=== PATIENT | male | born 1965 | race Hispanic/Latino ===

== ENCOUNTER 2017-07-17 05:21 | Inpatient (IN) | payer MEDICAID, OTHER ==
--- NOTE | 2017-07-17 06:04 | ED PDOC ---
Arrival/HPI <Cee Lafleur - Last Filed: 07/17/17 06:19> - General Historian: Patient EM Caveat: Acuity of Condition - History of Present Illness Time/Duration: Prior to Arrival, Other (2 days) Symptom Onset: Gradual Symptom Course: Intermittent Quality: Cramping Severity Level: 5 Activities at Onset: Light Context: Sitting, Standing <Morenita Jimenez - Last Filed: 07/17/17 07:13> - General Chief Complaint: Abdominal Pain Time Seen by Provider: 07/17/17 05:24 - History of Present Illness Narrative History of Present Illness (Text): 07/17/17 06:11 51 years old male with PMH HTN, HLD, presents with diffuse abdominal pain for past 2 days. Pt states that it started one evening after he ate steak, describes it crampy, intermittent, associated with nonbloody loose, watery diarrhea, diaphoresis, dyspepsia, and nausea. He also complains that he feels lightheaded today. Denies appetite changes, fever, chills, chest pain, sob, cough, hematochezia, vomiting, hx of constipation, urinary symptoms. PCP in [place]. Pt is visiting his father in [place]. Pt's father is currently a patient at [facility], to undergo cardiac procedure. (Morenita Jimenez) Associated Symptoms (Text): 07/17/17 06:17 Denies appetite changes, fever, chills, chest pain, sob, cough, hematochezia, vomiting, hx of constipation, urinary symptoms. (Morenita Jimenez) Past Medical History - Provider Review Nursing Documentation Reviewed: Yes - Cardiac Hx Hypertension: Yes - Psychiatric Hx Substance Use: No <Morenita Jimenez - Last Filed: 07/17/17 07:13> Family/Social History - Physician Review Nursing Documentation Reviewed: Yes Family/Social History: No Known Family HX Smoking Status: no Hx Alcohol Use: No Hx Substance Use: No <Morenita Jimenez - Last Filed: 07/17/17 07:13> Allergies/Home Meds <Cee Lafleur - Last Filed: 07/17/17 06:19> <Morenita Jimenez - Last Filed: 07/17/17 07:13> Allergies/Adverse Reactions: Allergies No Known Allergies Allergy (Verified 07/17/17 05:39) Home Medications: Home Meds Medication Instructions Recorded Confirmed No Known Home Med 07/17/17 07/17/17 Review of Systems - Review of Systems Constitutional: absent: Fatigue, Fevers Eyes: absent: Vision Changes ENT: absent: Hearing Changes, Sore Throat Respiratory: absent: SOB, Cough Cardiovascular: absent: Chest Pain Gastrointestinal: Abdominal Pain, Stool Changes, Diarrhea, Nausea. absent: Vomiting Genitourinary Male: absent: Dysuria, Hematuria Musculoskeletal: absent: Back Pain Skin: absent: Rash Neurological: absent: Headache Endocrine: absent: Diaphoresis Psychiatric: Anxiety <Morenita Jimenez - Last Filed: 07/17/17 07:13> Physical Exam Vital Signs Reviewed: Yes Temperature: Afebrile Blood Pressure: Normal Pulse: Tachycardic Respiratory Rate: Normal Appearance: Positive for: Non-Toxic, Uncomfortable Pain Distress: Mild Mental Status: Positive for: Alert and Oriented X 3 - Systems Exam Head: Present: Atraumatic, Normocephalic Pupils: Present: PERRL Extroacular Muscles: Present: EOMI Conjunctiva: Present: Normal Mouth: Present: Moist Mucous Membranes Pharnyx: No: ERYTHEMA Neck: Present: Normal Range of Motion Respiratory/Chest: Present: Clear to Auscultation. No: Respiratory Distress Cardiovascular: Present: Normal S1, S2, Tachycardic. No: Murmurs Abdomen: Present: Tenderness (diffuse), Normal Bowel Sounds, Guarding (LLQ) Upper Extremity: No: Cyanosis Lower Extremity: No: CALF TENDERNESS Neurological: Present: GCS=15, Speech Normal Skin: Present: Warm, Dry Psychiatric: Present: Alert, Oriented x 3 <Morenita Jimenez - Last Filed: 07/17/17 07:13> Vital Signs Temp Pulse Resp BP Pulse Ox 07/17/17 06:45 89 16 132/82 98 07/17/17 05:39 97.7 F 109 H 18 100/62 97 Medical Decision Making <Cee Lafleur - Last Filed: 07/17/17 06:19> - Transfer of Care Patient signed out to Dr:: Mayco Evans <Morenita Jimenez - Last Filed: 07/17/17 07:13> ED Course and Treatment: Patient Seen With Resident: In agreement with resident note which contains more details about the patient. Patient was seen and evaluated with resident. Came up with plan and treatment together. A 51 year old male with abdominal pain, watery diarrhea, nausea, dyspepsia and diaphoresis. Additional HPI as noted by resident. On physical exam, patient has diffuse abdominal tenderness with guarding. Ordered labs and will give patient IV fluids, Pepcid, Mylicon, Zofran. (Cee Lafleur) 07/17/17 05:58 51 years old male with hx of HTN and HLD, presents for diffuse abdominal pain: - CBC, CMP, lipase, Fluids - Zofran, Pepcid, Simethicone - Reassess 07/17/17 07:11 Pt still TTP with guarding in LLQ on exam. Will order CT abd pelvis. Discussed and handed over the patient to medical imaging technologist, Dr Mayco Evans. (Morenita Jimenez) - Lab Interpretations Lab Results: 07/17/17 06:31 Lab Results 07/17/17 06:31: WBC 7.3, RBC 5.76, Hgb 18.0, Hct 51.7, MCV 89.8, MCH 31.3, MCHC 34.8, RDW 13.7, Plt Count 150, MPV 10.9, Gran % 71.7 H, Lymph % (Auto) 16.6 L, [place] % (Auto) 11.5 H, Eos % (Auto) 0.1 L, Baso % (Auto) 0.1, Gran # 5.21, Lymph # 1.2, [place] # 0.8 H, Eos # 0.0, Baso # 0.01 - RAD Interpretation Radiology Orders: 07/17/17 07:01 ABDOMEN & PELVIS [ABD & PELVIS IV CONTRAST ONLY] [CT] Stat - Medication Orders Current Medication Orders: Discontinued Medications Famotidine (Pepcid) 20 mg IVP STAT STA Stop: 07/17/17 06:05 Last Admin: 07/17/17 06:39 Dose: 20 mg IVP Administration Document 07/17/17 06:39 AD (Rec: 07/17/17 06:39 AD [id number]) Charges for Administration # of IVP Administrations 1 Sodium Chloride (Sodium Chloride 0.9%) 1,000 mls @ 999 mls/hr IV .Q1H1M STA Stop: 07/17/17 07:08 Last Admin: 07/17/17 06:39 Dose: 999 mls/hr eMAR Start Stop Document 07/17/17 06:39 AD (Rec: 07/17/17 06:39 AD [id number]) Intravenous Solution Start Date 07/17/17 Start Time 06:39 Ondansetron HCl (Zofran Inj) 4 mg IVP STAT STA Stop: 07/17/17 06:06 Last Admin: 07/17/17 06:39 Dose: 4 mg IVP Administration Document 07/17/17 06:39 AD (Rec: 07/17/17 06:39 AD [id number]) Charges for Administration # of IVP Administrations 1 Simethicone (Mylicon Liq) 40 mg PO STAT STA Stop: 07/17/17 06:06 - Scribe Statement The provider has reviewed the documentation as recorded by the Scribe <Cee Lafleur - Last Filed: 07/17/17 06:19> - PA / RESEARCH PHYSIOLOGIST / Resident Statement MD/ has reviewed & agrees with the documentation as recorded. MD/ has examined the patient and agrees with the treatment plan. <Morenita Jimenez - Last Filed: 07/17/17 07:13> - Scribe Statement Gurinder Matos Provider Scribe Attestation: All medical record entries made by the Scribe were at my direction and personally dictated by me. I have reviewed the chart and agree that the record accurately reflects my personal performance of the history, physical exam, medical decision making, and the department course for this patient. I have also personally directed, reviewed, and agree with the discharge instructions and disposition. (Cee Lafleur) Disposition/Present on Arrival <Cee Lafleur - Last Filed: 07/17/17 06:19> - Present on Arrival Any Indicators Present on Arrival: No History of DVT/PE: No History of Uncontrolled Diabetes: No Urinary Catheter: No History of Decub. Ulcer: No History Surgical Site Infection Following: None - Disposition Have Diagnosis and Disposition been Completed?: No Disposition Time: 07:13 <Morenita Jimenez - Last Filed: 07/17/17 07:13> - Disposition Diagnosis: Abdominal pain Condition: FAIR Forms: [employer] (Czech)
[2017-07-17] MEDS ORDERED: Simethicone 40 mg/0.6 ml Liquid (30 ml) PO STA (06:05)
[2017-07-17] MEDS ORDERED: Sodium Chloride 0.9% 1,000 ML IV STA ×3 (06:08→09:15)
[2017-07-17 06:49] LABS: BASO # 0.01 K/mm3 (0.0-2.0); BASO % 0.1 % (0.0-3.0); EOS % 0.1 % (1.5-5.0); GRAN # 5.21 (1.4-6.5); GRAN % 71.7 % (50.0-68.0); HEMATOCRIT 51.7 % (42.0-52.0); LYMPH # 1.2 (1.2-3.4); LYMPH % 16.6 % (22.0-35.0); MEAN CELL VOLUME 89.8 fl (80.0-105.0); MEAN CORPUSCULAR HEMOGLOBIN 31.3 pg (25.0-35.0); MEAN CORPUSCULAR HGB CONC 34.8 g/dl (31.0-37.0); MEAN PLATELET VOLUME 10.9 fl (7.0-11.0); MONO # 0.8 (0.1-0.6); MONO % 11.5 % (1.0-6.0); RED CELL DISTRIBUTION WIDTH 13.7 % (11.5-14.5); WHITE BLOOD COUNT 7.3 10^3/ul (4.5-11.0)
[2017-07-17 07:07] LABS: ALB/GLOB RATIO 1.2 (1.1-1.8); ALKALINE PHOSPHATASE 50 U/L (38-126); ALT/SGPT 44 U/L (7-56); AST/SGOT 47 U/L (17-59); BILIRUBIN,TOTAL 1.4 mg/dL (0.2-1.3); BLOOD UREA NITROGEN 17 mg/dL (7-21); CALCIUM 8.3 mg/dL (8.4-10.5); CARBON DIOXIDE 27 mmol/L (21-33); CHLORIDE 101 mmol/L (98-107); GFR AFRICAN-AMERICAN > 60; GLUCOSE,RANDOM 139 mg/dL (70-110); LIPASE 28 U/L (23-300); POTASSIUM 3.8 mmol/L (3.6-5.0); SODIUM 135 mmol/L (132-148); TOTAL PROTEIN 6.4 g/dL (5.8-8.3)
--- NOTE | 2017-07-17 07:36 | ED PDOC ---
Physical Exam Temperature: Febrile Blood Pressure: Normal Pulse: Tachycardic Respiratory Rate: Normal Appearance: Positive for: Ill-Appearing Pain Distress: None Mental Status: Positive for: Alert and Oriented X 3 - Systems Exam Head: Present: Atraumatic, Other (face is flushed) Pupils: Present: PERRL Extroacular Muscles: Present: EOMI Conjunctiva: Present: Normal. No: Injected, Icteric Mouth: Present: Moist Mucous Membranes Neck: Present: Normal Range of Motion. No: Meningeal Signs Respiratory/Chest: Present: Clear to Auscultation, Good Air Exchange. No: Respiratory Distress Cardiovascular: Present: Regular Rate and Rhythm, Normal S1, S2. No: Murmurs Abdomen: Present: Tenderness (in lower abdomen diffusely with voluntary guardign ) Back: No: CVA Tenderness Upper Extremity: Present: Normal Inspection. No: Cyanosis, Edema Lower Extremity: Present: Normal Inspection. No: Edema Neurological: Present: GCS=15, CN II-XII Intact, Speech Normal Skin: Present: Warm Psychiatric: Present: Alert, Oriented x 3 <Mayco Ewing - Last Filed: 07/17/17 10:06> Vital Signs Temp Pulse Resp BP Pulse Ox 07/17/17 09:13 98 F 122 H 21 121/75 99 07/17/17 07:45 101.0 F H 07/17/17 07:20 101.0 F H 109 H 20 109/61 96 07/17/17 06:45 89 16 132/82 98 07/17/17 05:39 97.7 F 109 H 18 100/62 97 Medical Decision Making <Mayco Ewing - Last Filed: 07/17/17 10:06> <Grzegorz Eller - Last Filed: 07/17/17 17:48> ED Course and Treatment: patient signed out to me by Resident Dr. Gruber; pending lab results and CT scan patient became febrile to 101; given tylenol 975 pending VBG lactate CBC shows elevated HgB, CMP WNL Lipase WNL Patient has no history of abdominal surgery, however states is burping much more than usual which actually woke him up from sleep with abdominal pain/ diarrhea admits to body aches/bone aches, and changing 6-7 shirts while sleeping 2/2 to sweating; no international travel as per patient; no cough Rapid Flu pending 07/17/17 08:54 VBG Lactate WNL; pending CT Scan Neg for Flu 07/17/17 08:55 CT is showing diffuse mural thickening consistent with enteritis vs inflammatory bowel disease will send stool culture, c diff, leukocytes, stool for blood, will give metronidazole/Cipro for enteritis will call medical service food concession manager; pending call back 07/17/17 09:42 still pending call back from medical service 07/17/17 10:06 Dr. Beckett accepts patient to his service he will have the resident come to examine the patient (Mayco Ewing) 07/17/17 07:20 The patient is signed over to me by Dr. Lafleur. The patient is currently pending lab results. 07/17/17 08:07 Upon reassessment, the patient has a fever of 101.0. He was given Tylenol and fluids. I reviewed his labs and results indicate mild dehydration and a slight left shift in bilirubin. Reviewed the resident note as above we'll give antibiotics and also on the differential as ischemic colitis, however infection is more likely 07/17/17 17:47 (Grzegorz Eller) - Lab Interpretations Lab Results: 07/17/17 06:31 07/17/17 06:49 Lab Results 07/17/17 07:50: pO2 100 H, VBG pH 7.44 H, VBG pCO2 36.0 L, VBG HCO3 24.5, VBG Total CO2 25.6, VBG O2 Sat (Calc) 98.8 H, VBG Base Excess 0.6, VBG Potassium 3.6 , Glucose 147 H, Lactate 1.2, FiO2 21.0, Sodium 133.0, Chloride 104.0, Venous Blood Potassium 3.6 07/17/17 07:36: Influenza Typ A,B (EIA) Negative for flu a/b 07/17/17 06:49: Sodium 135, Potassium 3.8, Chloride 101, Carbon Dioxide 27, Anion Gap 11, BUN 17, Creatinine 1.1, Est GFR ( Amer) > 60, Est GFR (Non- Af Amer) > 60, Random Glucose 139 H, Calcium 8.3 L, Total Bilirubin 1.4 H, AST 47, ALT 44, Alkaline Phosphatase 50, Total Protein 6.4, Albumin 3.5, Globulin 2.9, Albumin/Globulin Ratio 1.2, Lipase 28 07/17/17 06:31: WBC 7.3, RBC 5.76, Hgb 18.0, Hct 51.7, MCV 89.8, MCH 31.3, MCHC 34.8, RDW 13.7, Plt Count 150, MPV 10.9, Gran % 71.7 H, Lymph % (Auto) 16.6 L, [place] % (Auto) 11.5 H, Eos % (Auto) 0.1 L, Baso % (Auto) 0.1, Gran # 5.21, Lymph # 1.2, [place] # 0.8 H, Eos # 0.0, Baso # 0.01 - RAD Interpretation Radiology Orders: 07/17/17 07:01 ABDOMEN & PELVIS [ABD & PELVIS IV CONTRAST ONLY] [CT] Stat - Medication Orders Current Medication Orders: Sodium Chloride (Sodium Chloride 0.9%) 1,000 mls @ 999 mls/hr IV .Q1H1M STA Stop: 07/17/17 10:15 Last Admin: 07/17/17 09:33 Dose: 999 mls/hr eMAR Start Stop Document 07/17/17 09:33 LA (Rec: 07/17/17 09:33 [id number][facility] Intravenous Solution Start Date 07/17/17 Start Time 09:33 Ciprofloxacin (Cipro 400mg/200ml Dsw) 400 mg in 200 mls @ 133.3 mls/hr IVPB STAT STA PRN Reason: Protocol Stop: 07/17/17 10:56 Metronidazole (Flagyl) 500 mg in 100 mls @ 100 mls/hr IVPB STAT STA PRN Reason: Protocol Stop: 07/17/17 10:25 Discontinued Medications Acetaminophen (Tylenol 325mg Tab) 975 mg PO STAT STA Stop: 07/17/17 07:44 Last Admin: 07/17/17 07:45 Dose: 975 mg MAR Pain/Vitals Document 07/17/17 07:45 LA (Rec: 07/17/17 09:06 [id number]) Pain Reassessment Is This A Pain ReAssessment? No Sleep Is patient sleeping during reassessment? No Presence of Pain Presence of Pain Yes Pain Scale Used Pain Scale Used Numeric Location Pain Location Body Site Abdomen Intensity 5 Scale Used Numeric Vitals Temperature (97.6 F-99.6 F) 101.0 F Temperature Source Oral Re-Assess: MAR Pain/Vitals Document 07/17/17 08:45 SRE (Rec: 07/17/17 09:07 SRE [id number]) Pain Reassessment Is This A Pain ReAssessment? Yes Sleep Is patient sleeping during reassessment? No Presence of Pain Presence of Pain No Famotidine (Pepcid) 20 mg IVP STAT STA Stop: 07/17/17 06:05 Last Admin: 07/17/17 06:39 Dose: 20 mg IVP Administration Document 07/17/17 06:39 AD (Rec: 07/17/17 06:39 AD [id number]) Charges for Administration # of IVP Administrations 1 Sodium Chloride (Sodium Chloride 0.9%) 1,000 mls @ 999 mls/hr IV .Q1H1M STA Stop: 07/17/17 07:08 Last Admin: 07/17/17 06:39 Dose: 999 mls/hr eMAR Start Stop Document 07/17/17 06:39 AD (Rec: 07/17/17 06:39 AD [id number]) Intravenous Solution Start Date 07/17/17 Start Time 06:39 Sodium Chloride (Sodium Chloride 0.9%) 1,000 mls @ 999 mls/hr IV .Q1H1M STA Stop: 07/17/17 08:59 Last Admin: 07/17/17 08:00 Dose: 999 mls/hr eMAR Start Stop Document 07/17/17 08:00 LA (Rec: 07/17/17 09:06 [facility] [id number]) Intravenous Solution Start Date 07/17/17 Start Time 09:06 Ondansetron HCl (Zofran Inj) 4 mg IVP STAT STA Stop: 07/17/17 06:06 Last Admin: 07/17/17 06:39 Dose: 4 mg IVP Administration Document 07/17/17 06:39 AD (Rec: 07/17/17 06:39 AD [id number]) Charges for Administration # of IVP Administrations 1 Ondansetron HCl (Zofran Inj) 4 mg IVP STAT STA Stop: 07/17/17 09:16 Last Admin: 07/17/17 09:33 Dose: 4 mg IVP Administration Document 07/17/17 09:33 LA (Rec: 07/17/17 09:33 [facility] [id number]) Charges for Administration # of IVP Administrations 1 Simethicone (Mylicon Liq) 40 mg PO STAT STA Stop: 07/17/17 06:06 Last Admin: 07/17/17 07:19 Dose: 40 mg <Mayco Ewing - Last Filed: 07/17/17 10:06> - Scribe Statement The provider has reviewed the documentation as recorded by the Scribe <Grzegorz Eller - Last Filed: 07/17/17 17:48> - Scribe Statement Afia Flowers Provider Scribe Attestation: All medical record entries made by the Scribe were at my direction and personally dictated by me. I have reviewed the chart and agree that the record accurately reflects my personal performance of the history, physical exam, medical decision making, and the department course for this patient. I have also personally directed, reviewed, and agree with the discharge instructions and disposition. (Grzegorz Eller) Disposition/Present on Arrival - Present on Arrival Any Indicators Present on Arrival: Yes History of DVT/PE: No History of Uncontrolled Diabetes: No Urinary Catheter: No History of Decub. Ulcer: No - Disposition Have Diagnosis and Disposition been Completed?: No Disposition Time: 10:07 Patient Plan: Admission <Mayco Ewing - Last Filed: 07/17/17 10:06> - Present on Arrival Any Indicators Present on Arrival: No History of DVT/PE: No History of Uncontrolled Diabetes: No Urinary Catheter: No History of Decub. Ulcer: No History Surgical Site Infection Following: None - Disposition Patient Plan: Admission <Grzegorz Eller - Last Filed: 07/17/17 17:48> - Disposition Diagnosis: Abdominal pain, Enteritis Disposition: HOSPITALIZED Patient Problems: Current Active Problems Problem Status Onset Abdominal pain Acute Enteritis Acute Condition: FAIR
[2017-07-17 08:07] LABS: VENOUS BLOOD GAS BASE EXCESS 0.6 mmol/L (0.0-2.0); VENOUS BLOOD PH 7.44 (7.32-7.43)
[2017-07-17] MEDS ORDERED: Iohexol 350 MG/100 ML VIAL ONE (08:28)
--- NOTE | 2017-07-17 09:18 | CT ---
PROCEDURE: CT Abdomen and Pelvis with contrast HISTORY: abdominal pain COMPARISON: None. TECHNIQUE: Contrast dose: 100 cc of Omni 350 Radiation dose: Total exam DLP = 534 mGy-cm. This CT exam was performed using one or more of the following dose reduction techniques: Automated exposure control, adjustment of the mA and/or kV according to patient size, and/or use of iterative reconstruction technique. FINDINGS: LOWER THORAX: Unremarkable. LIVER: Unremarkable. No gross lesion or ductal dilatation. GALLBLADDER AND BILE DUCTS: Unremarkable. PANCREAS: Unremarkable. No gross lesion or ductal dilatation. SPLEEN: Unremarkable. ADRENALS: Unremarkable. No mass. KIDNEYS AND URETERS: Unremarkable. No hydronephrosis. No solid mass. VASCULATURE: Unremarkable. No aortic aneurysm. BOWEL: There is severe mural thickening and mural enhancement throughout the small bowel consistent with severe enteritis or inflammatory bowel disease. There is no evidence of obstruction. The bowel loops are mildly dilated measuring 3 cm in diameter. The colon is filled with fluid but otherwise unremarkable. There is no evidence of pneumatosis or free air. There is a small amount of ascites surrounding the liver APPENDIX: Normal appendix. PERITONEUM: Unremarkable. No free fluid. No free air. LYMPH NODES: Unremarkable. No enlarged lymph nodes. BLADDER: Unremarkable. REPRODUCTIVE: Unremarkable. BONES: No acute fracture. OTHER FINDINGS: None. IMPRESSION: There is severe mural thickening and mural enhancement throughout the small bowel consistent with severe enteritis or inflammatory bowel disease.
[2017-07-17] MEDS ORDERED: metroNIDAZOLE IV 500 mg/100 ml 500 MG/100 ML BAG IVPB STA (09:26)
[2017-07-17] MEDS ORDERED: Ciprofloxacin 400mg/200ml D5W 400 MG/200 ML BAG IVPB STA (09:26)
--- NOTE | 2017-07-17 10:37 | CP.PCM.HP ---
History of Present Illness - History of Present Illness History of Present Illness: Patient is a 51 year old man with past medical history of hypertension who presents to [facility] ED on 07/17/17 with complaints of abdominal pain. Patient states abdominal pain started Sunday afternoon concurrently with diarrhea. Admits to consuming clams the day prior and steak the day of start of symptoms. Patient states that symptoms have worsened with time. States that pain was initially localized to the epigastrium but eventually radiated down to the lower quadrants, specifically right lower quadrant. Patient admits to non- bloody diarrhea six times per day described as "reid water", chills, fevers, diaphoresis, nausea, and lightheadedness. Denies vomiting, chest pain, dysuria, increased urgency, increased frequency, recent sick contacts, recent travel outside of country. States he has been inside the hospital every day for the past two weeks to visit his father. PMD: Dr. Dsah affilied with [facility] in [place], [place] Surgical History: Denies Family History: non-contributory Social History: Lives in [place] with male partner, denies tobacco use, denies alcohol consumption, denies illicit drug use Allergies: NKDA Medications: Amlodipine, Metoprolol, omeprazole Present on Admission - Present on Admission Any Indicators Present on Admission: Yes Review of Systems - Constitutional Constitutional: Chills, Excessive Sweating, Fever, Weakness - EENT Eyes: absent: Blurred Vision, Change in Vision Ears: absent: Decreased Hearing, Ear Discharge Nose/Mouth/Throat: absent: Nasal Congestion, Sinus Pressure - Cardiovascular Cardiovascular: absent: Chest Pain, Dyspnea, Leg Edema - Respiratory Respiratory: absent: Dyspnea, Wheezing - Gastrointestinal Gastrointestinal: Diarrhea, Nausea. absent: Vomiting - Genitourinary Genitourinary: absent: Dysuria, Urinary Frequency, Urinary Urgency - Musculoskeletal Musculoskeletal: absent: Arthralgias, Back Pain - Integumentary Integumentary: absent: Acne, Alopecia - Psychiatric Psychiatric: absent: Confusion, Visual Hallucinations Past Patient History - Past Social History Smoking Status: no - CARDIAC Hx Hypertension: Yes - PSYCHIATRIC Hx Substance Use: No Meds Allergies/Adverse Reactions: Allergies Allergy/AdvReac Type Severity Reaction Status Date / Time No Known Allergies Allergy Verified 07/17/17 05:39 Physical Exam - Constitutional Appears: Non-toxic, No Acute Distress - Head Exam Head Exam: ATRAUMATIC, NORMAL INSPECTION, NORMOCEPHALIC - Eye Exam Eye Exam: EOMI, Normal appearance - ENT Exam ENT Exam: Mucous Membranes Moist - Respiratory Exam Respiratory Exam: Clear to Auscultation Bilateral, NORMAL BREATHING PATTERN. absent: Rhonchi, Wheezes - Cardiovascular Exam Cardiovascular Exam: REGULAR RHYTHM, +S1, +S2 - GI/Abdominal Exam GI & Abdominal Exam: Normal Bowel Sounds, Soft - Rectal Exam Rectal Exam: NORMAL INSPECTION - Back Exam Back exam: NORMAL INSPECTION - Neurological Exam Neurological exam: Alert, CN II-XII Intact, Oriented x3 - Psychiatric Exam Psychiatric exam: Normal Affect, Normal Mood - Skin Skin Exam: Diaphoretic, Intact, Normal Color, Warm Results - Vital Signs Recent Vital Signs: Last Vital Signs Temp 98 F 07/17/17 09:13 Pulse 122 H 07/17/17 09:13 Resp 21 07/17/17 09:13 BP 121/75 07/17/17 09:13 Pulse Ox 99 07/17/17 09:13 - Labs Result Diagrams: 07/19/17 11:08 07/19/17 11:08 Labs: Laboratory Results - last 24 hr 07/17/17 10:15 Stool Occult Blood Positive H Assessment & Plan - Assessment and Plan (Free Text) Assessment: 51 year old male with past medical history of hypertension presenting with diarrhea and abdominal pain found to have severe enteritis on radioimaging. Plan: 1. Abdominal pain - CT abdomen/pelvis reveals severe enteritis - Flagyl started - Zofran - NS @150 - GI consulted; recs appreciated - Hepatitis panel; results pending - Stool leukocytes; results pending - Ova and parasites; results pending - Stool Culture; results pending - C diff toxin and antigen; results pending - Procalcitonin, CRP ordered; results pending - Stool occult blood 2. Hypertension - SBP <120, DBP <80 - Will hold home BP meds for now DVT/GI prophylaxis SCDs/Protonix
[2017-07-17] MEDS: Sodium Chloride 0.9% 1,000 ML IV SCH ×2 (12:48→20:29)
[2017-07-17] MEDS: metroNIDAZOLE IV 500 mg/100 ml 500 MG/100 ML BAG IVPB SCH ×2 (12:59→21:29)
--- NOTE | 2017-07-17 13:35 | CP.PCM.CON ---
<Alba Perez - Last Filed: 07/17/17 13:31> History of Present Illness - History of Present Illness History of Present Illness: S&E at bedside, chart reviewed. Request for GI consult is for abdominal pain/ diarrhea. HPI: This is a 51 year old male with a PMH of HTN, who came to the ER with complaint of abdominal pain, fever/chills and perfuse diarrhea that started a day after having consumed clams and steak that was eaten the day of start of complaints. The patient states that his partner also had steak and he has been ok. His symptoms started on Sunday night, reports diarrhea 15 times, all watery , no blood, he states that he has the urge to have BM and has been straining to have BM, when he strains it "shoots out like water". He had # BM today, brown sludge. He c/o abdominal bloating, abdominal discomfort. Denies recent travel or antibiotics use. He had recent colonoscopy 3 months ago for screening in [place], he is here visiting because his [place] is [place] [facility] [place] He was found to have colon polyps and denies EGD, he does c/o acid reflux, he has been taking for years OTC Omeprazole. He had a ct scan of A&P w/only IV contrast and that reported severe mural thickening and mural enhancement in small bowel with severe enteritis or inflammatory bowel disease. PMH: HTN, colon polyps,GERD PSH: denies Allergies: NKDA Social HX: denies tobacco,drinks 3-5 glasses wine/day, denies drugs MEDS: reviewed as per MAR Family HX: denies colon/stomach cancer, non contributory ROS: systems reviewed with positive findings, see HPI. Past Patient History - Past Social History Smoking Status: no - CARDIAC Hx Hypertension: Yes - PSYCHIATRIC Hx Substance Use: No Meds Allergies/Adverse Reactions: Allergies Allergy/AdvReac Type Severity Reaction Status Date / Time No Known Allergies Allergy Verified 07/17/17 05:39 - Medications Medications: Current Medications Sodium Chloride (Sodium Chloride 0.9%) 1,000 mls @ 150 mls/hr IV .Q6H40M [facility] Last Admin: 07/17/17 12:48 Dose: 150 mls/hr Metronidazole (Flagyl) 500 mg in 100 mls @ 100 mls/hr IVPB Q8 [facility] PRN Reason: Protocol Last Admin: 07/17/17 12:59 Dose: 100 mls/hr Ondansetron HCl (Zofran Inj) 4 mg IVP Q4 PRN PRN Reason: Nausea/Vomiting Pantoprazole Sodium (Protonix Inj) 40 mg IVP Q12 [facility] Last Admin: 07/17/17 12:45 Dose: 40 mg Physical Exam - Constitutional Appears: No Acute Distress - Head Exam Head Exam: NORMOCEPHALIC - Eye Exam Eye Exam: Normal appearance. absent: Scleral icterus - ENT Exam ENT Exam: Mucous Membranes Dry - Respiratory Exam Respiratory Exam: Clear to Auscultation Bilateral, NORMAL BREATHING PATTERN. absent: Respiratory Distress - Cardiovascular Exam Cardiovascular Exam: +S1, +S2 - GI/Abdominal Exam GI & Abdominal Exam: Hyperactive Bowel Sounds, Soft, Tenderness (diffuse periumblical). absent: Guarding, Rebound - Extremities Exam Extremities exam: Positive for: pedal pulses present. Negative for: calf tenderness, pedal edema - Neurological Exam Neurological exam: Alert, CN II-XII Intact, Oriented x3 - Skin Skin Exam: Dry, Warm Results - Vital Signs Recent Vital Signs: Last Vital Signs Temp 102.2 F H 07/17/17 10:58 Pulse 119 H 07/17/17 10:25 Resp 20 07/17/17 10:25 BP 117/79 07/17/17 10:25 Pulse Ox 95 07/17/17 10:25 - Labs Result Diagrams: 07/17/17 06:31 07/17/17 06:49 Labs: Laboratory Results - last 24 hr 07/17/17 10:15 Stool Occult Blood Positive H Assessment & Plan - Assessment and Plan (Free Text) Assessment: ASSESSMENT: Acute Diarrhea, differential Enteritis/Colitis Guiac Positive, Hbg stable, recent colon 3 months ago, maybe secondary straining /colitis Dehydration HTN GERD PLAN: NPO , continue IVF on IV antibiotics FU stool studies: c&s/cdiff/o&P monitor electrolytes and replace as needed on Protonix BID discuss w/ pateint who has been on OTC Omeprazol for years 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 Thank you for this consult and for allowing us to participate in your patient care, further recommendation based upon clinical course. Seen and discussed w/ Dr. Walton. <Ricardo Walton V - Last Filed: 07/17/17 19:22> Meds - Medications Medications: Current Medications Sodium Chloride (Sodium Chloride 0.9%) 1,000 mls @ 150 mls/hr IV .Q6H40M [facility] Last Admin: 07/17/17 12:48 Dose: 150 mls/hr Metronidazole (Flagyl) 500 mg in 100 mls @ 100 mls/hr IVPB Q8 [facility] PRN Reason: Protocol Last Admin: 07/17/17 12:59 Dose: 100 mls/hr Levofloxacin/Dextrose (Levaquin 500mg) 500 mg in 100 mls @ 100 mls/hr IVPB DAILY [facility] Ondansetron HCl (Zofran Inj) 4 mg IVP Q4 PRN PRN Reason: Nausea/Vomiting Pantoprazole Sodium (Protonix Inj) 40 mg IVP Q12 [facility] Last Admin: 07/17/17 12:45 Dose: 40 mg Results - Vital Signs Recent Vital Signs: Last Vital Signs Temp 99.7 F H 07/17/17 16:37 Pulse 107 H 07/17/17 16:37 Resp 18 07/17/17 16:37 BP 108/63 07/17/17 16:37 Pulse Ox 96 07/17/17 16:26 - Labs Result Diagrams: 07/17/17 15:51 07/17/17 15:51 Labs: Laboratory Results - last 24 hr 07/17/17 07/17/17 07/17/17 10:15 15:51 15:51 WBC 5.8 D RBC 4.77 Hgb 14.7 D Hct 43.3 MCV 90.8 MCH 30.8 MCHC 33.9 RDW 13.3 Plt Count 110 L MPV 9.7 Gran % 61.4 Lymph % (Auto) 21.0 L [place] % (Auto) 17.2 H Eos % (Auto) 0.2 L Baso % (Auto) 0.2 Gran # 3.55 Lymph # 1.2 [place] # 1.0 H Eos # 0.0 Baso # 0.01 Sodium 136 Potassium 4.2 Chloride 102 Carbon Dioxide 29 Anion Gap 8 L BUN 15 Creatinine 1.1 Est GFR ( Amer) > 60 Est GFR (Non-Af Amer) > 60 Random Glucose 119 H Calcium 7.5 L Phosphorus 3.1 Magnesium 1.5 L Total Bilirubin 1.3 AST 52 ALT 44 Alkaline Phosphatase 38 D Total Protein 5.7 L Albumin 3.0 Globulin 2.7 Albumin/Globulin Ratio 1.1 Stool Occult Blood Positive H Attending/Attestation - Attestation I have personally seen and examined this patient.: Yes I have fully participated in the care of the patient.: Yes I have reviewed all pertinent clinical information: Yes Notes (Text): This is an addendum to GI consult report dictated by Alba Perez APN.The patient was seen and examined earlier. Medical records, lab studies, imagings were reviewed. Last 24 hours events reviewed. Agreed with the above treatment plan as outlined in Alba Perez APN's notes the with the addition of the following patient still has some tenderness in the epigastric and umbilical area. The CT scan was reviewed. Significant thickening of the small bowel loo Cultures still pending No previous history of diarrhea abdominal pain suggestive of IBD Clinically more suggestive of infectious enteritis Patient is already on IV Flagyl. Received 1 dose of IV Cipro in the ER We'll continue with Levaquin 500mg daily in addition to Flagyl. We'll start the patient on clear liquid diet Thank you very much for allowing us to participate in the care of the patient 07/17/17 19:19
[2017-07-17 16:01] LABS: BASO # 0.01 K/mm3 (0.0-2.0); BASO % 0.2 % (0.0-3.0); EOS % 0.2 % (1.5-5.0); GRAN # 3.55 (1.4-6.5); GRAN % 61.4 % (50.0-68.0); HEMATOCRIT 43.3 % (42.0-52.0); LYMPH # 1.2 (1.2-3.4); MEAN CELL VOLUME 90.8 fl (80.0-105.0); MEAN CORPUSCULAR HEMOGLOBIN 30.8 pg (25.0-35.0); MEAN CORPUSCULAR HGB CONC 33.9 g/dl (31.0-37.0); MEAN PLATELET VOLUME 9.7 fl (7.0-11.0); MONO % 17.2 % (1.0-6.0); RED CELL DISTRIBUTION WIDTH 13.3 % (11.5-14.5); WHITE BLOOD COUNT 5.8 10^3/ul (4.5-11.0)
[2017-07-17 16:05] LABS: ALKALINE PHOSPHATASE 38 U/L (38-126); ALT/SGPT 44 U/L (7-56); AST/SGOT 52 U/L (17-59); BILIRUBIN,TOTAL 1.3 mg/dL (0.2-1.3); BLOOD UREA NITROGEN 15 mg/dL (7-21); CALCIUM 7.5 mg/dL (8.4-10.5); CARBON DIOXIDE 29 mmol/L (21-33); CHLORIDE 102 mmol/L (98-107); GFR AFRICAN-AMERICAN > 60; GLUCOSE,RANDOM 119 mg/dL (70-110); MAGNESIUM 1.5 mg/dL (1.7-2.2); PHOSPHOROUS 3.1 mg/dL (2.5-4.5); POTASSIUM 4.2 mmol/L (3.6-5.0); SODIUM 136 mmol/L (132-148); TOTAL PROTEIN 5.7 g/dL (5.8-8.3)
[2017-07-17 16:21] LABS: ALB/GLOB RATIO 1.1 (1.1-1.8)
[2017-07-17 16:52] VITALS: BMI 27.1
[2017-07-17 20:17] LABS: INR 1.13 (0.93-1.08); PARTIAL THROMBOPLASTIN TIME 31.3 Seconds (25.1-36.5)
[2017-07-18] MEDS: metroNIDAZOLE IV 500 mg/100 ml 500 MG/100 ML BAG IVPB SCH ×3 (06:05→21:37)
[2017-07-18] MEDS: Sodium Chloride 0.9% 1,000 ML IV SCH ×3 (06:07→14:12)
[2017-07-18] MEDS ORDERED: levoFLOXacin 500 mg in D5W 500 MG/100 ML BAG IVPB SCH (10:00)
[2017-07-18] MEDS: cefTRIAXone 2 GM IN NS 2 GM/100 ML BAG IVPB SCH (11:44)
--- NOTE | 2017-07-18 13:22 | CP.PCM.CON ---
History of Present Illness - History of Present Illness History of Present Illness: 51 year old male with PMH of HTN came in to [facility] [place] complaining of abdominal pain and cramping associated with fever and chills for the past 2-3 days. Initially he had no diarrhea, but then his stools became watery and brown. He denies nausea and vomiting, no headache or dizziness, no lightheadedness, no chest pain , no SOB, no cough or colds, no sore throat, no dysuria. He states he only ate a piece of steak a day prior to his symptoms. He denies animal contacts. He has not traveled outside of [place] in the past 3 months. He has been seeing his father in [facility] [place] since last week. CT scan of the abdomen and pelvis is showing enterocolitis. Infectious diseases consult is requested to further evaluate and manage. Review of Systems - Review of Systems All systems: reviewed and no additional remarkable complaints except (as per HPI ) Past Patient History - Past Social History Smoking Status: no - CARDIAC Hx Hypertension: Yes - NEUROLOGICAL Hx Dizziness: Yes - MUSCULOSKELETAL/RHEUMATOLOGICAL Hx Falls: No - GASTROINTESTINAL Hx Gastroesophageal Reflux: Yes - PSYCHIATRIC Hx Substance Use: No Meds Allergies/Adverse Reactions: Allergies Allergy/AdvReac Type Severity Reaction Status Date / Time No Known Allergies Allergy Verified 07/17/17 05:39 - Medications Medications: Current Medications Sodium Chloride (Sodium Chloride 0.9%) 1,000 mls @ 150 mls/hr IV .Q6H40M [facility] Last Admin: 07/18/17 09:16 Dose: Not Given Metronidazole (Flagyl) 500 mg in 100 mls @ 100 mls/hr IVPB Q8 [facility] PRN Reason: Protocol Last Admin: 07/18/17 06:05 Dose: 100 mls/hr Levofloxacin/Dextrose (Levaquin 500mg) 500 mg in 100 mls @ 100 mls/hr IVPB DAILY [facility] Last Admin: 07/18/17 09:16 Dose: 100 mls/hr Ondansetron HCl (Zofran Inj) 4 mg IVP Q4 PRN PRN Reason: Nausea/Vomiting Pantoprazole Sodium (Protonix Inj) 40 mg IVP Q12 [facility] Last Admin: 07/18/17 09:16 Dose: 40 mg Physical Exam - Constitutional Appears: Non-toxic - Head Exam Head Exam: NORMAL INSPECTION - ENT Exam ENT Exam: Mucous Membranes Moist - Neck Exam Neck exam: Negative for: Lymphadenopathy, Meningismus - Respiratory Exam Respiratory Exam: Decreased Breath Sounds - Cardiovascular Exam Cardiovascular Exam: +S1, +S2 - GI/Abdominal Exam GI & Abdominal Exam: Soft, Tenderness (mild, lower quadrants) Results - Vital Signs Recent Vital Signs: Last Vital Signs Temp 100 F H 07/18/17 08:35 Pulse 104 H 07/18/17 08:35 Resp 20 07/18/17 08:35 BP 108/65 07/18/17 08:35 Pulse Ox 95 07/18/17 08:35 - Labs Result Diagrams: 07/17/17 15:51 07/17/17 15:51 Labs: Laboratory Results - last 24 hr 07/17/17 07/17/17 07/17/17 10:15 11:30 15:51 WBC RBC Hgb Hct MCV MCH MCHC RDW Plt Count MPV Gran % Lymph % (Auto) [place] % (Auto) Eos % (Auto) Baso % (Auto) Gran # Lymph # [place] # Eos # Baso # PT INR APTT Sodium Potassium Chloride Carbon Dioxide Anion Gap BUN Creatinine Est GFR ( Amer) Est GFR (Non-Af Amer) Random Glucose Calcium Phosphorus Magnesium Total Bilirubin AST ALT Alkaline Phosphatase C-React Prot High Sens Total Protein Albumin Globulin Albumin/Globulin Ratio Procalcitonin 3.58 H Stool Occult Blood Positive H HIV 1&2 Ag/Ab, 4th Gen Nonreactive 07/17/17 07/17/17 07/17/17 15:51 15:51 15:51 WBC 5.8 D RBC 4.77 Hgb 14.7 D Hct 43.3 MCV 90.8 MCH 30.8 MCHC 33.9 RDW 13.3 Plt Count 110 L MPV 9.7 Gran % 61.4 Lymph % (Auto) 21.0 L [place] % (Auto) 17.2 H Eos % (Auto) 0.2 L Baso % (Auto) 0.2 Gran # 3.55 Lymph # 1.2 [place] # 1.0 H Eos # 0.0 Baso # 0.01 PT INR APTT Sodium 136 Potassium 4.2 Chloride 102 Carbon Dioxide 29 Anion Gap 8 L BUN 15 Creatinine 1.1 Est GFR ( Amer) > 60 Est GFR (Non-Af Amer) > 60 Random Glucose 119 H Calcium 7.5 L Phosphorus 3.1 Magnesium 1.5 L Total Bilirubin 1.3 AST 52 ALT 44 Alkaline Phosphatase 38 D C-React Prot High Sens > 15.00 H Total Protein 5.7 L Albumin 3.0 Globulin 2.7 Albumin/Globulin Ratio 1.1 Procalcitonin Stool Occult Blood HIV 1&2 Ag/Ab, 4th Gen 07/17/17 19:56 WBC RBC Hgb Hct MCV MCH MCHC RDW Plt Count MPV Gran % Lymph % (Auto) [place] % (Auto) Eos % (Auto) Baso % (Auto) Gran # Lymph # [place] # Eos # Baso # PT 12.3 INR 1.13 H APTT 31.3 Sodium Potassium Chloride Carbon Dioxide Anion Gap BUN Creatinine Est GFR ( Amer) Est GFR (Non-Af Amer) Random Glucose Calcium Phosphorus Magnesium Total Bilirubin AST ALT Alkaline Phosphatase C-React Prot High Sens Total Protein Albumin Globulin Albumin/Globulin Ratio Procalcitonin Stool Occult Blood HIV 1&2 Ag/Ab, 4th Gen Assessment & Plan - Assessment and Plan (Free Text) Plan: Assessment Sepsis due to acute enterocolitis HTN Plan Started patient on Rocephin, Flagyl and patient has been given a dose of Ciprofloxacin pending stool cx, blood cx; stool for C. diff is negative GI is also following the patient will monitor clinically
[2017-07-18 14:00] LABS: BASO # 0.01 K/mm3 (0.0-2.0); BASO % 0.2 % (0.0-3.0); EOS % 0.9 % (1.5-5.0); GRAN # 2.71 (1.4-6.5); GRAN % 63.8 % (50.0-68.0); HEMATOCRIT 40.7 % (42.0-52.0); LYMPH % 23.1 % (22.0-35.0); MEAN CELL VOLUME 90.2 fl (80.0-105.0); MEAN CORPUSCULAR HEMOGLOBIN 30.8 pg (25.0-35.0); MEAN CORPUSCULAR HGB CONC 34.2 g/dl (31.0-37.0); MEAN PLATELET VOLUME 9.9 fl (7.0-11.0); MONO # 0.5 (0.1-0.6); RED CELL DISTRIBUTION WIDTH 13.2 % (11.5-14.5); WHITE BLOOD COUNT 4.3 10^3/ul (4.5-11.0)
[2017-07-18 14:08] LABS: INR 1.13 (0.93-1.08); PARTIAL THROMBOPLASTIN TIME 27.6 Seconds (25.1-36.5)
[2017-07-18 14:46] LABS: ALB/GLOB RATIO 1.1 (1.1-1.8); ALKALINE PHOSPHATASE 40 U/L (38-126); ALT/SGPT 36 U/L (7-56); AST/SGOT 24 U/L (17-59); BILIRUBIN,TOTAL 0.6 mg/dL (0.2-1.3); BLOOD UREA NITROGEN 10 mg/dL (7-21); CALCIUM 7.6 mg/dL (8.4-10.5); GFR AFRICAN-AMERICAN > 60; GLUCOSE,RANDOM 134 mg/dL (70-110); SODIUM 136 mmol/L (132-148); TOTAL PROTEIN 5.5 g/dL (5.8-8.3)
[2017-07-18] MEDS ORDERED: Potassium Chloride 20 mEq ER Tab PO STA (14:47)
--- NOTE | 2017-07-18 14:47 | CP.PCM.PN ---
Subjective - Date & Time of Evaluation Date of Evaluation: 07/18/17 Time of Evaluation: 07:40 - Subjective Subjective: Patient was seen and examined at bedside in no acute Objective - Vital Signs/Intake and Output Vital Signs (last 24 hours): Temp Pulse Resp BP Pulse Ox 100 F H 104 H 20 108/65 95 07/18/17 08:35 07/18/17 08:35 07/18/17 08:35 07/18/17 08:35 07/18/17 08:35 Intake and Output: 07/18/17 07/18/17 06:59 18:59 Intake Total 4100 780 Output Total 10 Balance 4090 780 - Medications Medications: Current Medications Sodium Chloride (Sodium Chloride 0.9%) 1,000 mls @ 150 mls/hr IV .Q6H40M [facility] Last Admin: 07/18/17 14:12 Dose: 150 mls/hr Metronidazole (Flagyl) 500 mg in 100 mls @ 100 mls/hr IVPB Q8 [facility] PRN Reason: Protocol Last Admin: 07/18/17 14:10 Dose: 100 mls/hr Ceftriaxone Sodium (Rocephin 2 Gm Ivpb) 2 gm in 100 mls @ 100 mls/hr IVPB DAILY [facility] PRN Reason: Protocol Last Admin: 07/18/17 11:44 Dose: 100 mls/hr Ondansetron HCl (Zofran Inj) 4 mg IVP Q4 PRN PRN Reason: Nausea/Vomiting Pantoprazole Sodium (Protonix Inj) 40 mg IVP Q12 [facility] Last Admin: 07/18/17 09:16 Dose: 40 mg - Labs Labs: 07/18/17 13:45 07/17/17 15:51 PT 12.3 SECONDS (9.4-12.5) 07/18/17 13:45 INR 1.13 (0.93-1.08) H 07/18/17 13:45 APTT 27.6 Seconds (25.1-36.5) 07/18/17 13:45 - Constitutional Appears: Toxic - Head Exam Head Exam: ATRAUMATIC, NORMAL INSPECTION, NORMOCEPHALIC - Eye Exam Eye Exam: EOMI, Normal appearance - ENT Exam ENT Exam: Mucous Membranes Moist, Normal Exam - Respiratory Exam Respiratory Exam: Clear to Ausculation Bilateral, NORMAL BREATHING PATTERN - Cardiovascular Exam Cardiovascular Exam: REGULAR RHYTHM, +S1, +S2 - GI/Abdominal Exam GI & Abdominal Exam: Soft, Hyperactive Bowel Sounds. absent: Distended, Organomegaly - Neurological Exam Neurological Exam: Alert, Awake, Oriented x3 - Psychiatric Exam Psychiatric exam: Normal Affect, Normal Mood - Skin Skin Exam: Normal Color, Warm Assessment and Plan - Assessment and Plan (Free Text) Assessment: 51 year old male with past medical history of hypertension presenting with diarrhea and abdominal pain found to have severe enteritis on radioimaging. Plan: Plan: 1. Abdominal pain - CT abdomen//pelvis reveals severe enteritis - Flagyl started - Zofran - NS @150 - GI consulted; recommends no endoscopy at this time. Patient's last colonoscopy 2-3 months prior- 3 polyps found (1 out of 3 was concerning. Will have colonoscopy repeated in 5 years) - Hepatitis panel; negative - Stool leukocytes; negative - Ova and parasites; negative - Stool Culture; pending - C diff toxin and antigen; negative - Procalcitonin, CRP - Stool occult blood positive - HIV testing; non reactive 2. Hypokalemia due to diarrhea - monitor - replete when needed with Kdur or Kriders 3. Hypertension - SBP <120, DBP <80 - Will hold home BP meds for now DVT/GI prophylaxis SCDs/Protonix
[2017-07-18] MEDS ORDERED: Potassium Chloride 20 mEq ER Tab PO ONE (14:55)
--- NOTE | 2017-07-18 17:12 | CP.PCM.PN ---
<Alba Perez - Last Filed: 07/18/17 17:12> Subjective - Date & Time of Evaluation Date of Evaluation: 07/18/17 Time of Evaluation: 10:45 - Subjective Subjective: S&E at bedside, had a few episode of diarrhea last night and 2 so far before my arrival. Notice blood last night, none this am. tolerated clear liquids but still have have abdominal pain, same as yesterday, but no pain med needed. No N /V, sob or chest pain. Objective - Vital Signs/Intake and Output Vital Signs (last 24 hours): Temp Pulse Resp BP Pulse Ox 98 F 91 H 18 104/67 100 07/18/17 16:00 07/18/17 16:00 07/18/17 16:00 07/18/17 16:00 07/18/17 16:00 Intake and Output: 07/18/17 07/18/17 06:59 18:59 Intake Total 4100 780 Output Total 10 Balance 4090 780 - Medications Medications: Current Medications Sodium Chloride (Sodium Chloride 0.9%) 1,000 mls @ 150 mls/hr IV .Q6H40M [facility] Last Admin: 07/18/17 14:12 Dose: 150 mls/hr Metronidazole (Flagyl) 500 mg in 100 mls @ 100 mls/hr IVPB Q8 [facility] PRN Reason: Protocol Last Admin: 07/18/17 14:10 Dose: 100 mls/hr Ceftriaxone Sodium (Rocephin 2 Gm Ivpb) 2 gm in 100 mls @ 100 mls/hr IVPB DAILY [facility] PRN Reason: Protocol Last Admin: 07/18/17 11:44 Dose: 100 mls/hr Potassium Chloride (Potassium Chloride 20 Meq/100 Ml) 20 meq in 100 mls @ 50 mls/hr IVPB Q2H [facility] Last Admin: 07/18/17 15:37 Dose: 50 mls/hr Ondansetron HCl (Zofran Inj) 4 mg IVP Q4 PRN PRN Reason: Nausea/Vomiting Pantoprazole Sodium (Protonix Inj) 40 mg IVP Q12 [facility] Last Admin: 07/18/17 09:16 Dose: 40 mg - Labs Labs: 07/18/17 13:45 07/18/17 13:45 PT 12.3 SECONDS (9.4-12.5) 07/18/17 13:45 INR 1.13 (0.93-1.08) H 07/18/17 13:45 APTT 27.6 Seconds (25.1-36.5) 07/18/17 13:45 - Constitutional Appears: No Acute Distress - Eye Exam Eye Exam: Normal appearance. absent: Scleral icterus - ENT Exam ENT Exam: Mucous Membranes Moist - Respiratory Exam Respiratory Exam: Clear to Ausculation Bilateral, NORMAL BREATHING PATTERN. absent: Respiratory Distress - Cardiovascular Exam Cardiovascular Exam: +S1, +S2 - GI/Abdominal Exam GI & Abdominal Exam: Soft, Tenderness (diffuse mid abdominal), Normal Bowel Sounds. absent: Guarding, Organomegaly, Rebound - Extremities Exam Extremities Exam: absent: Pedal Edema - Neurological Exam Neurological Exam: Alert, Awake, Oriented x3 - Skin Skin Exam: Dry, Warm Assessment and Plan - Assessment and Plan (Free Text) Assessment: ASSESSMENT: Acute Diarrhea, differential Enteritis/Colitis, cdiff negative Guiac Positive, Hbg stable, recent colon 3 months ago, maybe secondary straining /colitis Dehydration HTN GERD PLAN: clear liquid, advance as tolerate and when abdominal pain improves continue IVF on IV antibiotics FU stool studies: c&s/o&P monitor electrolytes and replace as needed on Protonix BID Seen and discussed w/ Dr. Walton. <Ricardo Walton V - Last Filed: 07/18/17 21:40> Objective - Vital Signs/Intake and Output Vital Signs (last 24 hours): Temp Pulse Resp BP Pulse Ox 98 F 91 H 18 104/67 100 07/18/17 16:00 07/18/17 16:00 07/18/17 16:00 07/18/17 16:00 07/18/17 16:00 Intake and Output: 07/18/17 07/19/17 18:59 06:59 Intake Total 780 840 Output Total 4 Balance 780 836 - Medications Medications: Current Medications Sodium Chloride (Sodium Chloride 0.9%) 1,000 mls @ 150 mls/hr IV .Q6H40M [facility] Last Admin: 07/18/17 14:12 Dose: 150 mls/hr Metronidazole (Flagyl) 500 mg in 100 mls @ 100 mls/hr IVPB Q8 [facility] PRN Reason: Protocol Last Admin: 07/18/17 14:10 Dose: 100 mls/hr Ceftriaxone Sodium (Rocephin 2 Gm Ivpb) 2 gm in 100 mls @ 100 mls/hr IVPB DAILY [facility] PRN Reason: Protocol Last Admin: 07/18/17 11:44 Dose: 100 mls/hr Potassium Chloride (Potassium Chloride 20 Meq/100 Ml) 20 meq in 100 mls @ 50 mls/hr IVPB Q2H [facility] Last Admin: 07/18/17 15:37 Dose: 50 mls/hr Ondansetron HCl (Zofran Inj) 4 mg IVP Q4 PRN PRN Reason: Nausea/Vomiting Pantoprazole Sodium (Protonix Inj) 40 mg IVP Q12 [facility] Last Admin: 07/18/17 09:16 Dose: 40 mg - Labs Labs: 07/18/17 13:45 07/18/17 19:55 PT 12.3 SECONDS (9.4-12.5) 07/18/17 13:45 INR 1.13 (0.93-1.08) H 07/18/17 13:45 APTT 27.6 Seconds (25.1-36.5) 07/18/17 13:45 Attending/Attestation - Attestation I have personally seen and examined this patient.: Yes I have fully participated in the care of the patient.: Yes I have reviewed all pertinent clinical information, including history, physical exam and plan: Yes Notes (Text): This is an addendum to GI progress report dictated by Alba Perez APN.The patient was seen and examined earlier. Medical records, lab studies, imagings were reviewed. Last 24 hours events reviewed. Agreed with the above treatment plan as outlined in Alba Perez APN's notes the with the addition of the following Feeling overall better diarrhea has slowed down. On liquid diet Follow up stool studies We will slowly advance the diet in a.m. 07/18/17 21:39
[2017-07-18 17:28] LABS: POTASSIUM 2.9 mmol/L (3.6-5.0)
[2017-07-18 17:29] LABS: CARBON DIOXIDE 22 mmol/L (21-33); CHLORIDE 105 mmol/L (98-107)
[2017-07-18 20:13] LABS: BLOOD UREA NITROGEN 8 mg/dL (7-21); CALCIUM 7.8 mg/dL (8.4-10.5); CARBON DIOXIDE 27 mmol/L (21-33); CHLORIDE 102 mmol/L (98-107); GFR AFRICAN-AMERICAN > 60; GLUCOSE,RANDOM 104 mg/dL (70-110); POTASSIUM 3.3 mmol/L (3.6-5.0); SODIUM 136 mmol/L (132-148)
[2017-07-19] MEDS: metroNIDAZOLE IV 500 mg/100 ml 500 MG/100 ML BAG IVPB SCH ×3 (05:22→21:19)
[2017-07-19] MEDS: Sodium Chloride 0.9% 1,000 ML IV SCH ×4 (05:42→17:25)
--- NOTE | 2017-07-19 09:07 | CP.PCM.PN ---
<Alba Perez - Last Filed: 07/19/17 09:05> Subjective - Date & Time of Evaluation Date of Evaluation: 07/19/17 Time of Evaluation: 09:02 - Subjective Subjective: S&E at bedside, chart reviewed, patient report that had 3 BM last night, loose, no bleeding, had 1 this am, he endorsees he does not have "urge" to go but feels bloated and goes to have BM. No N/V. Abdominal pain is better, not constant, now intermittent in certain areas, not throughout mid abdomen. No acute overnight events. Objective - Vital Signs/Intake and Output Vital Signs (last 24 hours): Temp Pulse Resp BP Pulse Ox 98.6 F 88 20 114/73 99 07/19/17 07:30 07/19/17 07:30 07/19/17 07:30 07/19/17 07:30 07/19/17 07:30 Intake and Output: 07/19/17 07/19/17 06:59 18:59 Intake Total 840 1600 Output Total 4 Balance 836 1600 - Medications Medications: Current Medications Sodium Chloride (Sodium Chloride 0.9%) 1,000 mls @ 150 mls/hr IV .Q6H40M [facility], [facility] Last Admin: 07/19/17 05:42 Dose: 150 mls/hr Metronidazole (Flagyl) 500 mg in 100 mls @ 100 mls/hr IVPB Q8 [facility] PRN Reason: Protocol Last Admin: 07/19/17 05:22 Dose: 100 mls/hr Ceftriaxone Sodium (Rocephin 2 Gm Ivpb) 2 gm in 100 mls @ 100 mls/hr IVPB DAILY [facility] PRN Reason: Protocol Last Admin: 07/18/17 11:44 Dose: 100 mls/hr Potassium Chloride (Potassium Chloride 20 Meq/100 Ml) 20 meq in 100 mls @ 50 mls/hr IVPB Q2H [facility] Stop: 07/19/17 09:29 Last Admin: 07/19/17 07:41 Dose: 50 mls/hr Ondansetron HCl (Zofran Inj) 4 mg IVP Q4 PRN PRN Reason: Nausea/Vomiting Pantoprazole Sodium (Protonix Inj) 40 mg IVP Q12 [facility] Last Admin: 07/18/17 22:49 Dose: 40 mg - Labs Labs: 07/18/17 13:45 07/18/17 19:55 PT 12.3 SECONDS (9.4-12.5) 07/18/17 13:45 INR 1.13 (0.93-1.08) H 07/18/17 13:45 APTT 27.6 Seconds (25.1-36.5) 07/18/17 13:45 - Constitutional Appears: No Acute Distress - Head Exam Head Exam: NORMOCEPHALIC - Eye Exam Eye Exam: Normal appearance. absent: Scleral icterus - ENT Exam ENT Exam: Mucous Membranes Moist - Neck Exam Neck Exam: Normal Inspection - Respiratory Exam Respiratory Exam: Clear to Ausculation Bilateral, NORMAL BREATHING PATTERN. absent: Respiratory Distress - Cardiovascular Exam Cardiovascular Exam: +S1, +S2 - GI/Abdominal Exam GI & Abdominal Exam: Soft, Tenderness (mild mid abdomen), Normal Bowel Sounds. absent: Guarding, Organomegaly, Rebound - Extremities Exam Extremities Exam: Normal Capillary Refill. absent: Calf Tenderness, Pedal Edema - Neurological Exam Neurological Exam: Alert, Awake, Oriented x3 - Skin Skin Exam: Dry, Warm Assessment and Plan - Assessment and Plan (Free Text) Assessment: ASSESSMENT: Acute Diarrhea, differential Enteritis/Colitis, cdiff negative x 2 Guiac Positive, Hbg stable, recent colon 3 months ago, maybe secondary straining /colitis Dehydration Hypokalemia HTN GERD PLAN: clear liquid, advance to full liquids continue IVF on IV antibiotics monitor electrolytes and replace as needed on Protonix BID recommend elective outpt EGD for h/o GERD and PPI use, discussed w/ patient on admission Seen and discussed w/ Dr. Walton. <Ricardo Walton V - Last Filed: 07/19/17 23:20> Objective - Vital Signs/Intake and Output Vital Signs (last 24 hours): Temp Pulse Resp BP Pulse Ox 98.4 F 102 H 16 120/74 96 07/19/17 16:00 07/19/17 16:00 07/19/17 16:00 07/19/17 16:00 07/19/17 16:00 Intake and Output: 07/19/17 07/20/17 18:59 06:59 Intake Total 2200 600 Balance 2200 600 - Medications Medications: Current Medications Sodium Chloride (Sodium Chloride 0.9%) 1,000 mls @ 150 mls/hr IV .Q6H40M [facility] Last Admin: 07/19/17 17:25 Dose: Not Given Metronidazole (Flagyl) 500 mg in 100 mls @ 100 mls/hr IVPB Q8 [facility] PRN Reason: Protocol Last Admin: 07/19/17 21:19 Dose: 100 mls/hr Ceftriaxone Sodium (Rocephin 2 Gm Ivpb) 2 gm in 100 mls @ 100 mls/hr IVPB DAILY [facility] PRN Reason: Protocol Last Admin: 07/19/17 10:28 Dose: 100 mls/hr Ondansetron HCl (Zofran Inj) 4 mg IVP Q4 PRN PRN Reason: Nausea/Vomiting Pantoprazole Sodium (Protonix Inj) 40 mg IVP Q12 [facility] Last Admin: 07/19/17 21:19 Dose: 40 mg - Labs Labs: 07/19/17 11:08 07/19/17 11:08 PT 11.1 SECONDS (9.4-12.5) 07/19/17 20:37 INR 1.02 (0.93-1.08) 07/19/17 20:37 APTT 27.7 Seconds (25.1-36.5) 07/19/17 20:37 Attending/Attestation - Attestation I have personally seen and examined this patient.: Yes I have fully participated in the care of the patient.: Yes I have reviewed all pertinent clinical information, including history, physical exam and plan: Yes Notes (Text): this patient was seen and evaluated earlier. This is an addendum to the GI progress report dictated by Alba Perez APN. Diarrhea continues to improve Abdomen soft minimal tenderness on deep palpation in the periumbilical area. continue the antibiotics will advance the diet in a.m. 07/19/17 23:18 07/19/17 23:20
--- NOTE | 2017-07-19 09:21 | CP.PCM.PN ---
Subjective - Date & Time of Evaluation Date of Evaluation: 07/19/17 Time of Evaluation: 09:18 - Subjective Subjective: Patient seen and examined at bedside. States he had episodes of diarrhea overnight, described as green/brown sludge. Patient states he was able to sleep more over night and feels slightly better. States he still does not have an appetite. Is able to move without eliciting much pain. Denies shortness of breath, chest pain, cough, headache, dizziness. Objective - Vital Signs/Intake and Output Vital Signs (last 24 hours): Temp Pulse Resp BP Pulse Ox 98.6 F 88 20 114/73 99 07/19/17 07:30 07/19/17 07:30 07/19/17 07:30 07/19/17 07:30 07/19/17 07:30 Intake and Output: 07/19/17 07/19/17 06:59 18:59 Intake Total 840 1600 Output Total 4 Balance 836 1600 - Medications Medications: Current Medications Sodium Chloride (Sodium Chloride 0.9%) 1,000 mls @ 150 mls/hr IV .Q6H40M [facility] Last Admin: 07/19/17 05:42 Dose: 150 mls/hr Metronidazole (Flagyl) 500 mg in 100 mls @ 100 mls/hr IVPB Q8 [facility] PRN Reason: Protocol Last Admin: 07/19/17 05:22 Dose: 100 mls/hr Ceftriaxone Sodium (Rocephin 2 Gm Ivpb) 2 gm in 100 mls @ 100 mls/hr IVPB DAILY [facility] PRN Reason: Protocol Last Admin: 07/18/17 11:44 Dose: 100 mls/hr Potassium Chloride (Potassium Chloride 20 Meq/100 Ml) 20 meq in 100 mls @ 50 mls/hr IVPB Q2H [facility] Stop: 07/19/17 09:29 Last Admin: 07/19/17 07:41 Dose: 50 mls/hr Ondansetron HCl (Zofran Inj) 4 mg IVP Q4 PRN PRN Reason: Nausea/Vomiting Pantoprazole Sodium (Protonix Inj) 40 mg IVP Q12 [facility] Last Admin: 07/18/17 22:49 Dose: 40 mg - Labs Labs: 07/18/17 13:45 07/18/17 19:55 PT 12.3 SECONDS (9.4-12.5) 07/18/17 13:45 INR 1.13 (0.93-1.08) H 07/18/17 13:45 APTT 27.6 Seconds (25.1-36.5) 07/18/17 13:45 - Constitutional Appears: Non-toxic, In Acute Distress - Head Exam Head Exam: ATRAUMATIC, NORMAL INSPECTION, NORMOCEPHALIC - Eye Exam Eye Exam: EOMI, Normal appearance - ENT Exam ENT Exam: Mucous Membranes Moist, Normal Exam - Neck Exam Neck Exam: Normal Inspection - Respiratory Exam Respiratory Exam: Clear to Ausculation Bilateral, NORMAL BREATHING PATTERN. absent: Rales, Rhonchi, Wheezes - Cardiovascular Exam Cardiovascular Exam: REGULAR RHYTHM, +S1, +S2 - GI/Abdominal Exam GI & Abdominal Exam: Soft, Normal Bowel Sounds - Neurological Exam Neurological Exam: Alert, Awake, Oriented x3 - Psychiatric Exam Psychiatric exam: Normal Affect, Normal Mood - Skin Skin Exam: Dry, Normal Color, Warm Assessment and Plan - Assessment and Plan (Free Text) Assessment: 51 year old male with past medical history of hypertension presenting with diarrhea and abdominal pain found to have severe enteritis on radioimaging. Plan: 1. Abdominal pain - CT abdomen/pelvis reveals severe enteritis - Continue with flagyl - ID consulted; added rocephin to flagyl - Zofran - NS @150 - GI consulted; recommends endoscopy as outpatient. Patient's last colonoscopy 2 -3 months prior- 3 polyps found (1 out of 3 was concerning. Will have colonoscopy repeated in 5 years) - Stool Culture; pending - C diff toxin and antigen; negative - Procalcitonin, CRP positive - Stool occult blood positive - HIV testing 4th generation; non reactive - HIV RNA; results pending 2. Hypokalemia due to diarrhea/hypomagnesemia - monitor - replete when needed with Kdur or Kriders 3. Hypomagnesemia - 1.5, replete 4. Hypertension - SBP <120, DBP <80 - Will hold home BP meds for now DVT/GI prophylaxis SCDs/Protonix
[2017-07-19] MEDS ORDERED: Magnesium Sulfate 2 GM in Sodium Chloride 0.9% 100 ML IV ONE (10:25)
[2017-07-19] MEDS ORDERED: Potassium Chloride 20 mEq ER Tab PO ONE ×3 (10:27→14:49)
[2017-07-19] MEDS: cefTRIAXone 2 GM IN NS 2 GM/100 ML BAG IVPB SCH (10:28)
[2017-07-19 11:16] LABS: BASO # 0.01 K/mm3 (0.0-2.0); BASO % 0.3 % (0.0-3.0); EOS # 0.2 (0.0-0.7); GRAN % 53.5 % (50.0-68.0); HEMATOCRIT 40.1 % (42.0-52.0); LYMPH # 1.1 (1.2-3.4); LYMPH % 30.2 % (22.0-35.0); MEAN CELL VOLUME 89.7 fl (80.0-105.0); MEAN CORPUSCULAR HEMOGLOBIN 31.3 pg (25.0-35.0); MEAN CORPUSCULAR HGB CONC 34.9 g/dl (31.0-37.0); MEAN PLATELET VOLUME 9.3 fl (7.0-11.0); MONO # 0.5 (0.1-0.6); RED CELL DISTRIBUTION WIDTH 13.2 % (11.5-14.5); WHITE BLOOD COUNT 3.7 10^3/ul (4.5-11.0)
[2017-07-19 11:52] LABS: ALB/GLOB RATIO 1.1 (1.1-1.8); ALKALINE PHOSPHATASE 42 U/L (38-126); ALT/SGPT 36 U/L (7-56); AST/SGOT 20 U/L (17-59); BILIRUBIN,TOTAL 0.5 mg/dL (0.2-1.3); BLOOD UREA NITROGEN 6 mg/dL (7-21); CALCIUM 8.3 mg/dL (8.4-10.5); CARBON DIOXIDE 27 mmol/L (21-33); CHLORIDE 104 mmol/L (98-107); GFR AFRICAN-AMERICAN > 60; GLUCOSE,RANDOM 102 mg/dL (70-110); MAGNESIUM 1.8 mg/dL (1.7-2.2); POTASSIUM 3.1 mmol/L (3.6-5.0); SODIUM 137 mmol/L (132-148); TOTAL PROTEIN 5.8 g/dL (5.8-8.3)
--- NOTE | 2017-07-19 12:48 | CP.PCM.PN ---
Subjective - Date & Time of Evaluation Date of Evaluation: 07/19/17 Time of Evaluation: 11:05 - Subjective Subjective: Patient still has loose bowel movement, but no more fever, much less abdominal cramps and pain, no nausea or vomiting. Objective - Vital Signs/Intake and Output Vital Signs (last 24 hours): Temp Pulse Resp BP Pulse Ox 98.6 F 88 20 114/73 99 07/19/17 07:30 07/19/17 07:30 07/19/17 07:30 07/19/17 07:30 07/19/17 07:30 Intake and Output: 07/19/17 07/19/17 06:59 18:59 Intake Total 840 1600 Output Total 4 Balance 836 1600 - Medications Medications: Current Medications Sodium Chloride (Sodium Chloride 0.9%) 1,000 mls @ 150 mls/hr IV .Q6H40M [facility] Last Admin: 07/19/17 05:42 Dose: 150 mls/hr Metronidazole (Flagyl) 500 mg in 100 mls @ 100 mls/hr IVPB Q8 [facility] PRN Reason: Protocol Last Admin: 07/19/17 05:22 Dose: 100 mls/hr Ceftriaxone Sodium (Rocephin 2 Gm Ivpb) 2 gm in 100 mls @ 100 mls/hr IVPB DAILY [facility] PRN Reason: Protocol Last Admin: 07/18/17 11:44 Dose: 100 mls/hr Ondansetron HCl (Zofran Inj) 4 mg IVP Q4 PRN PRN Reason: Nausea/Vomiting Pantoprazole Sodium (Protonix Inj) 40 mg IVP Q12 [facility] Last Admin: 07/18/17 22:49 Dose: 40 mg - Labs Labs: 07/18/17 13:45 07/18/17 19:55 PT 12.3 SECONDS (9.4-12.5) 07/18/17 13:45 INR 1.13 (0.93-1.08) H 07/18/17 13:45 APTT 27.6 Seconds (25.1-36.5) 07/18/17 13:45 - Constitutional Appears: Non-toxic, No Acute Distress - Head Exam Head Exam: NORMAL INSPECTION - ENT Exam ENT Exam: Mucous Membranes Moist - Neck Exam Neck Exam: absent: Lymphadenopathy, Meningismus - Respiratory Exam Respiratory Exam: Decreased Breath Sounds - Cardiovascular Exam Cardiovascular Exam: +S1, +S2 - GI/Abdominal Exam GI & Abdominal Exam: Soft, Tenderness (mild). absent: Distended, Guarding, Rigid, Rebound Assessment and Plan - Assessment and Plan (Free Text) Plan: Assessment Sepsis due to acute enterocolitis, slowly improving clinically HTN Plan continue Rocephin, Flagyl day 2; stool cx, blood cx, stool for C. diff are negative GI is also following the patient will continue to monitor clinically
[2017-07-19 20:58] LABS: INR 1.02 (0.93-1.08); PARTIAL THROMBOPLASTIN TIME 27.7 Seconds (25.1-36.5)
[2017-07-20] MEDS: Sodium Chloride 0.9% 1,000 ML IV SCH ×2 (02:13→06:10)
[2017-07-20] MEDS: metroNIDAZOLE IV 500 mg/100 ml 500 MG/100 ML BAG IVPB SCH (05:21)
[2017-07-20 07:14] LABS: BASO # 0.01 K/mm3 (0.0-2.0); BASO % 0.2 % (0.0-3.0); EOS # 0.1 (0.0-0.7); GRAN # 2.5 (1.4-6.5); GRAN % 57.7 % (50.0-68.0); HEMATOCRIT 37.3 % (42.0-52.0); LYMPH # 1.3 (1.2-3.4); LYMPH % 30.3 % (22.0-35.0); MEAN CELL VOLUME 90.1 fl (80.0-105.0); MEAN CORPUSCULAR HEMOGLOBIN 30.7 pg (25.0-35.0); MONO # 0.4 (0.1-0.6); MONO % 8.8 % (1.0-6.0); RED CELL DISTRIBUTION WIDTH 13.5 % (11.5-14.5); WHITE BLOOD COUNT 4.3 10^3/ul (4.5-11.0)
[2017-07-20 07:51] LABS: ALB/GLOB RATIO 1.1 (1.1-1.8); ALKALINE PHOSPHATASE 44 U/L (38-126); ALT/SGPT 46 U/L (7-56); AST/SGOT 30 U/L (17-59); BILIRUBIN,TOTAL 0.5 mg/dL (0.2-1.3); BLOOD UREA NITROGEN 5 mg/dL (7-21); CALCIUM 8.5 mg/dL (8.4-10.5); CARBON DIOXIDE 24 mmol/L (21-33); CHLORIDE 108 mmol/L (98-107); GFR AFRICAN-AMERICAN > 60; GLUCOSE,RANDOM 102 mg/dL (70-110); POTASSIUM 3.6 mmol/L (3.6-5.0); SODIUM 139 mmol/L (132-148); TOTAL PROTEIN 5.7 g/dL (5.8-8.3)
[2017-07-20 08:08] VITALS: RESP 20
[2017-07-20] MEDS: cefTRIAXone 2 GM IN NS 2 GM/100 ML BAG IVPB SCH (09:32)
[2017-07-20] MEDS ORDERED: Potassium Chloride 40 mEq/30 ml LIQ UD PO ONE (09:52)
--- NOTE | 2017-07-20 11:17 | CP.PCM.PN ---
Subjective - Date & Time of Evaluation Date of Evaluation: 07/20/17 Time of Evaluation: 06:55 - Subjective Subjective: Patient was seen and examined at bedside in no acute distress. Patient states he was able to eat some of the mashed potatoes, rice, bread, and banana last night. Admits to having two bowel movements overnight, which has decreased from his normal amount of bowel movements per night since being admitted. Patient states that this morning's bowel movement still had a loose consistency. Patient states he still feels a bit weak but not as pronounced as before. Denies shortness of breath, chest pain, nausea, vomiting, diarrhea, fevers, chills. Objective - Vital Signs/Intake and Output Vital Signs (last 24 hours): Temp Pulse Resp BP Pulse Ox 98.3 F 91 H 20 108/63 98 07/20/17 07:30 07/20/17 07:30 07/20/17 07:30 07/20/17 07:30 07/20/17 07:30 Intake and Output: 07/20/17 07/20/17 06:59 18:59 Intake Total 1320 Output Total 0 Balance 1320 - Medications Medications: Current Medications Sodium Chloride (Sodium Chloride 0.9%) 1,000 mls @ 150 mls/hr IV .Q6H40M [facility] Last Admin: 07/20/17 06:10 Dose: Not Given Metronidazole (Flagyl) 500 mg in 100 mls @ 100 mls/hr IVPB Q8 [facility] PRN Reason: Protocol Last Admin: 07/20/17 05:21 Dose: 100 mls/hr Ceftriaxone Sodium (Rocephin 2 Gm Ivpb) 2 gm in 100 mls @ 100 mls/hr IVPB DAILY [facility] PRN Reason: Protocol Last Admin: 07/20/17 09:32 Dose: 100 mls/hr Ondansetron HCl (Zofran Inj) 4 mg IVP Q4 PRN PRN Reason: Nausea/Vomiting Pantoprazole Sodium (Protonix Inj) 40 mg IVP Q12 [facility] Last Admin: 07/20/17 09:39 Dose: 40 mg - Labs Labs: 07/20/17 07:00 07/20/17 07:00 PT 11.1 SECONDS (9.4-12.5) 07/19/17 20:37 INR 1.02 (0.93-1.08) 07/19/17 20:37 APTT 27.7 Seconds (25.1-36.5) 07/19/17 20:37 - Constitutional Appears: Non-toxic, No Acute Distress - Head Exam Head Exam: ATRAUMATIC, NORMAL INSPECTION, NORMOCEPHALIC - Eye Exam Eye Exam: EOMI, Normal appearance - ENT Exam ENT Exam: Mucous Membranes Moist, Normal Exam - Neck Exam Neck Exam: Full ROM, Normal Inspection - Respiratory Exam Respiratory Exam: Clear to Ausculation Bilateral, NORMAL BREATHING PATTERN. absent: Rales, Rhonchi, Wheezes - Cardiovascular Exam Cardiovascular Exam: REGULAR RHYTHM, +S1, +S2 - GI/Abdominal Exam GI & Abdominal Exam: Soft, Normal Bowel Sounds. absent: Tenderness - Extremities Exam Extremities Exam: absent: Calf Tenderness, Pedal Edema - Back Exam Back Exam: NORMAL INSPECTION. absent: rash noted - Neurological Exam Neurological Exam: Alert, Awake, Oriented x3 - Psychiatric Exam Psychiatric exam: Normal Affect, Normal Mood - Skin Skin Exam: Normal Color, Warm Assessment and Plan - Assessment and Plan (Free Text) Assessment: 51 year old male with past medical history of hypertension presenting with diarrhea and abdominal pain found to have severe enteritis on radioimaging. Plan: 1. Abdominal pain - CT abdomen/pelvis reveals severe enteritis - Continue flagyl and rocephin - Zofran - Tylenol PRN for headache - Continue with IVF - Tolerated PO soft food challenge, will see if he can tolerate more advanced diet 2. Anemia - Iron studies, folate, B12 - Hematology consulted 3. Hypokalemia due to diarrhea/hypomagnesemia - monitor - replete when needed with Kdur 4. Hypomagnesemia - normalized 5. Hypertension -stable, continue to monitor DVT/GI prophylaxis SCDs/Protonix
--- NOTE | 2017-07-20 12:35 | CP.PCM.PN ---
<Alba Perez - Last Filed: 07/20/17 12:36> Subjective - Date & Time of Evaluation Date of Evaluation: 07/20/17 Time of Evaluation: 10:45 - Subjective Subjective: S&E at bedside, chart reviewed. Tolerating solids, had rice, banana,and mash potato. Had BM 3 am was not loose, had 6 am was "wet" as per patient. No bleeding, abdominal pain resolved just "sore". Denies bleeding. Wants to go home. Objective - Vital Signs/Intake and Output Vital Signs (last 24 hours): Temp Pulse Resp BP Pulse Ox 98.3 F 91 H 20 108/63 98 07/20/17 07:30 07/20/17 07:30 07/20/17 07:30 07/20/17 07:30 07/20/17 07:30 Intake and Output: 07/20/17 07/20/17 06:59 18:59 Intake Total 1320 Output Total 0 Balance 1320 - Medications Medications: Current Medications Acetaminophen (Tylenol 325mg Tab) 650 mg PO Q6H PRN PRN Reason: Headache Sodium Chloride (Sodium Chloride 0.9%) 1,000 mls @ 150 mls/hr IV .Q6H40M [facility] Last Admin: 07/20/17 06:10 Dose: Not Given Metronidazole (Flagyl) 500 mg in 100 mls @ 100 mls/hr IVPB Q8 [facility] PRN Reason: Protocol Last Admin: 07/20/17 05:21 Dose: 100 mls/hr Ceftriaxone Sodium (Rocephin 2 Gm Ivpb) 2 gm in 100 mls @ 100 mls/hr IVPB DAILY [facility] PRN Reason: Protocol Last Admin: 07/20/17 09:32 Dose: 100 mls/hr Ondansetron HCl (Zofran Inj) 4 mg IVP Q4 PRN PRN Reason: Nausea/Vomiting Pantoprazole Sodium (Protonix Inj) 40 mg IVP Q12 [facility] Last Admin: 07/20/17 09:39 Dose: 40 mg - Labs Labs: 07/20/17 07:00 07/20/17 07:00 PT 11.1 SECONDS (9.4-12.5) 07/19/17 20:37 INR 1.02 (0.93-1.08) 07/19/17 20:37 APTT 27.7 Seconds (25.1-36.5) 07/19/17 20:37 - Constitutional Appears: No Acute Distress - Head Exam Head Exam: absent: NORMOCEPHALIC - Eye Exam Eye Exam: Normal appearance. absent: Scleral icterus - ENT Exam ENT Exam: Mucous Membranes Moist - Neck Exam Neck Exam: Normal Inspection - Respiratory Exam Respiratory Exam: Clear to Ausculation Bilateral, NORMAL BREATHING PATTERN. absent: Respiratory Distress - Cardiovascular Exam Cardiovascular Exam: +S1, +S2 - GI/Abdominal Exam GI & Abdominal Exam: Soft, Normal Bowel Sounds. absent: Distended, Guarding, Tenderness, Rebound - Extremities Exam Extremities Exam: absent: Calf Tenderness, Pedal Edema - Neurological Exam Neurological Exam: Alert, Awake, Oriented x3 - Skin Skin Exam: Dry, Warm Assessment and Plan - Assessment and Plan (Free Text) Assessment: ASSESSMENT: Acute Diarrhea, differential Enteritis/Colitis, cdiff negative x 2 Guiac Positive, Hbg stable, recent colon 3 months ago, maybe secondary straining /colitis Anemia Dehydration Hypokalemia HTN GERD PLAN: Heart healthy, rec soft low residual to start on IVF, consider decrease to stop when tolerating diet on IV antibiotics monitor electrolytes and replace as needed on Protonix BID hematology evaluation recommend elective outpt EGD for h/o GERD and PPI use, discussed w/ patient on admission Seen and discussed w/ Dr. Walton. <Ricardo Walton V - Last Filed: 07/20/17 23:35> Objective - Vital Signs/Intake and Output Vital Signs (last 24 hours): Temp Pulse Resp BP Pulse Ox 98 F 90 20 115/76 96 07/20/17 16:00 07/20/17 16:00 07/20/17 16:00 07/20/17 16:00 07/20/17 16:00 Intake and Output: 07/20/17 07/21/17 18:59 06:59 Intake Total 1020 960 Balance 1020 960 - Medications Medications: Current Medications Acetaminophen (Tylenol 325mg Tab) 650 mg PO Q6H PRN PRN Reason: Headache Cefpodoxime Proxetil (Vantin) 200 mg PO Q12 [facility] PRN Reason: Protocol Stop: 07/25/17 13:46 Last Admin: 07/20/17 21:23 Dose: 200 mg Metronidazole (Flagyl) 500 mg PO Q8 [facility] PRN Reason: Protocol Last Admin: 07/20/17 21:23 Dose: 500 mg Ondansetron HCl (Zofran Inj) 4 mg IVP Q4 PRN PRN Reason: Nausea/Vomiting Pantoprazole Sodium (Protonix Inj) 40 mg IVP Q12 [facility] Last Admin: 07/20/17 21:23 Dose: 40 mg - Labs Labs: 07/20/17 07:00 07/20/17 07:00 PT 11.1 SECONDS (9.4-12.5) 07/19/17 20:37 INR 1.02 (0.93-1.08) 07/19/17 20:37 APTT 27.7 Seconds (25.1-36.5) 07/19/17 20:37 Attending/Attestation - Attestation I have personally seen and examined this patient.: Yes I have fully participated in the care of the patient.: Yes I have reviewed all pertinent clinical information, including history, physical exam and plan: Yes Notes (Text): this is an addendum to the GI progress report dictated by Alba Perez APN Patient was seen and evaluated earlier. Tolerating diet Please better On examination abdomen soft no tenderness Patient is concerned about IV fluids which she will discontinue Complete the antibiotics as per ID 07/20/17 23:33
--- NOTE | 2017-07-20 13:45 | CP.PCM.PN ---
Subjective - Date & Time of Evaluation Date of Evaluation: 07/20/17 Time of Evaluation: 11:20 - Subjective Subjective: Feeling better, no more abdominal pain, no fevers overnight, much improved diarrhea. No nausea or vomiting. Objective - Vital Signs/Intake and Output Vital Signs (last 24 hours): Temp Pulse Resp BP Pulse Ox 98.3 F 91 H 20 108/63 98 07/20/17 07:30 07/20/17 07:30 07/20/17 07:30 07/20/17 07:30 07/20/17 07:30 Intake and Output: 07/20/17 07/20/17 06:59 18:59 Intake Total 1320 Output Total 0 Balance 1320 - Medications Medications: Current Medications Sodium Chloride (Sodium Chloride 0.9%) 1,000 mls @ 150 mls/hr IV .Q6H40M [facility] Last Admin: 07/20/17 06:10 Dose: Not Given Metronidazole (Flagyl) 500 mg in 100 mls @ 100 mls/hr IVPB Q8 [facility] PRN Reason: Protocol Last Admin: 07/20/17 05:21 Dose: 100 mls/hr Ceftriaxone Sodium (Rocephin 2 Gm Ivpb) 2 gm in 100 mls @ 100 mls/hr IVPB DAILY [facility] PRN Reason: Protocol Last Admin: 07/20/17 09:32 Dose: 100 mls/hr Ondansetron HCl (Zofran Inj) 4 mg IVP Q4 PRN PRN Reason: Nausea/Vomiting Pantoprazole Sodium (Protonix Inj) 40 mg IVP Q12 [facility] Last Admin: 07/20/17 09:39 Dose: 40 mg - Labs Labs: 07/20/17 07:00 07/20/17 07:00 PT 11.1 SECONDS (9.4-12.5) 07/19/17 20:37 INR 1.02 (0.93-1.08) 07/19/17 20:37 APTT 27.7 Seconds (25.1-36.5) 07/19/17 20:37 - Constitutional Appears: Non-toxic - Head Exam Head Exam: NORMAL INSPECTION - ENT Exam ENT Exam: Mucous Membranes Moist - Neck Exam Neck Exam: absent: Meningismus - Respiratory Exam Respiratory Exam: absent: Rales, Rhonchi - Cardiovascular Exam Cardiovascular Exam: +S1, +S2 - GI/Abdominal Exam GI & Abdominal Exam: Soft. absent: Tenderness Assessment and Plan - Assessment and Plan (Free Text) Plan: Assessment Sepsis due to acute enterocolitis, improving clinically HTN Plan on Rocephin, Flagyl day 3; stool cx, blood cx, stool for C. diff are negative - we can switch patient to PO Vantin and Flagyl to complete the 7 day course since he is able to eat solid foods well now GI is also following the patient
[2017-07-20] MEDS: Cefpodoxime (Vantin) 200 mg Tab PO SCH ×2 (14:29→21:23)
[2017-07-20 17:35] LABS: FOLATE 9.2 ng/mL
[2017-07-21 06:34] LABS: BASO # 0.01 K/mm3 (0.0-2.0); BASO % 0.2 % (0.0-3.0); EOS # 0.1 (0.0-0.7); EOS % 2.4 % (1.5-5.0); GRAN # 3.43 (1.4-6.5); GRAN % 62.7 % (50.0-68.0); HEMATOCRIT 35.2 % (42.0-52.0); LYMPH # 1.4 (1.2-3.4); LYMPH % 25.2 % (22.0-35.0); MEAN CELL VOLUME 89.1 fl (80.0-105.0); MEAN CORPUSCULAR HEMOGLOBIN 30.1 pg (25.0-35.0); MEAN CORPUSCULAR HGB CONC 33.8 g/dl (31.0-37.0); MEAN PLATELET VOLUME 9.3 fl (7.0-11.0); MONO # 0.5 (0.1-0.6); MONO % 9.5 % (1.0-6.0); WHITE BLOOD COUNT 5.5 10^3/ul (4.5-11.0)
[2017-07-21 06:53] LABS: ALB/GLOB RATIO 1.1 (1.1-1.8); ALKALINE PHOSPHATASE 47 U/L (38-126); ALT/SGPT 56 U/L (7-56); AST/SGOT 66 U/L (17-59); BILIRUBIN,TOTAL 0.5 mg/dL (0.2-1.3); BLOOD UREA NITROGEN 5 mg/dL (7-21); CALCIUM 8.8 mg/dL (8.4-10.5); CARBON DIOXIDE 26 mmol/L (21-33); CHLORIDE 108 mmol/L (98-107); GFR AFRICAN-AMERICAN > 60; GLUCOSE,RANDOM 97 mg/dL (70-110); POTASSIUM 3.8 mmol/L (3.6-5.0); SODIUM 138 mmol/L (132-148); TOTAL PROTEIN 5.5 g/dL (5.8-8.3)
[2017-07-21 07:45] VITALS: BP 131/82; PULSE 110; TEMP 100.2; O2SAT 95
[2017-07-21] MEDS: Cefpodoxime (Vantin) 200 mg Tab PO SCH (09:26)
--- NOTE | 2017-07-21 11:35 | CP.PCM.DIS ---
<KatianaArti - Last Filed: 07/21/17 14:24> Provider - Provider Date of Admission: 07/17/17 10:12 Attending physician: Phong Beckett MD Primary care physician: Phong Beckett MD Consults: ID: Dr Hale Gi: Dr Patel Time Spent in preparation of Discharge (in minutes): 45 Diagnosis - Discharge Diagnosis (1) Colitis Status: Acute (2) Colitis presumed infectious Status: Acute (3) Abdominal pain Status: Resolved (4) Abdominal pain, vomiting, and diarrhea Status: Resolved (5) Neutropenia Status: Resolved (6) Anemia Status: Acute Hospital Course - Lab Results Lab Results: Micro Results 07/17/17 10:30 Blood-Venous Blood Culture - Preliminary NO GROWTH AFTER 4 DAYS 07/17/17 14:14 Stool Ova and Parasite Concentrate Exam - Final 07/17/17 17:00 Stool C. difficile Antigen & Toxin A,B (M - Final Most Recent Lab Values WBC 5.5 10^3/ul (4.5-11.0) D 07/21/17 06:00 RBC 3.95 10^6/uL (3.5-6.1) 07/21/17 06:00 Hgb 11.9 g/dL (14.0-18.0) L 07/21/17 06:00 Hct 35.2 % (42.0-52.0) L 07/21/17 06:00 MCV 89.1 fl (80.0-105.0) 07/21/17 06:00 MCH 30.1 pg (25.0-35.0) 07/21/17 06:00 MCHC 33.8 g/dl (31.0-37.0) 07/21/17 06:00 RDW 13.0 % (11.5-14.5) 07/21/17 06:00 Plt Count 171 10^3/uL (120.0-450.0) 07/21/17 06:00 MPV 9.3 fl (7.0-11.0) 07/21/17 06:00 Gran % 62.7 % (50.0-68.0) 07/21/17 06:00 Lymph % (Auto) 25.2 % (22.0-35.0) 07/21/17 06:00 [place] % (Auto) 9.5 % (1.0-6.0) H 07/21/17 06:00 Eos % (Auto) 2.4 % (1.5-5.0) 07/21/17 06:00 Baso % (Auto) 0.2 % (0.0-3.0) 07/21/17 06:00 Gran # 3.43 (1.4-6.5) 07/21/17 06:00 Lymph # 1.4 (1.2-3.4) 07/21/17 06:00 [place] # 0.5 (0.1-0.6) 07/21/17 06:00 Eos # 0.1 (0.0-0.7) 07/21/17 06:00 Baso # 0.01 K/mm3 (0.0-2.0) 07/21/17 06:00 Haptoglobin 394 mg/dL (43-212) H 07/20/17 11:30 PT 11.1 SECONDS (9.4-12.5) 07/19/17 20:37 INR 1.02 (0.93-1.08) 07/19/17 20:37 APTT 27.7 Seconds (25.1-36.5) 07/19/17 20:37 pO2 100 mm/Hg (30-55) H 07/17/17 07:50 VBG pH 7.44 (7.32-7.43) H 07/17/17 07:50 VBG pCO2 36.0 (40-60) L 07/17/17 07:50 VBG HCO3 24.5 mmol/l (21-28) 07/17/17 07:50 VBG Total CO2 25.6 mmol.L (22-28) 07/17/17 07:50 VBG O2 Sat (Calc) 98.8 % (40-65) H 07/17/17 07:50 VBG Base Excess 0.6 mmol/L (0.0-2.0) 07/17/17 07:50 VBG Potassium 3.6 mmol/L (3.6-5.2) 07/17/17 07:50 Sodium 133.0 mmol/L (132-148) 07/17/17 07:50 Chloride 104.0 mmol/L (98-107) 07/17/17 07:50 Glucose 147 mg/dl (75-110) H 07/17/17 07:50 Lactate 1.2 mmol/L (0.7-2.1) 07/17/17 07:50 FiO2 21.0 % 07/17/17 07:50 Sodium 138 mmol/L (132-148) 07/21/17 06:00 Potassium 3.8 mmol/L (3.6-5.0) 07/21/17 06:00 Chloride 108 mmol/L (98-107) H 07/21/17 06:00 Carbon Dioxide 26 mmol/L (21-33) 07/21/17 06:00 Anion Gap 8 (10-20) L 07/21/17 06:00 BUN 5 mg/dL (7-21) L 07/21/17 06:00 Creatinine 0.9 mg/dl (0.8-1.5) 07/21/17 06:00 Est GFR ( Amer) > 60 07/21/17 06:00 Est GFR (Non-Af Amer) > 60 07/21/17 06:00 Random Glucose 97 mg/dL (70-110) 07/21/17 06:00 Calcium 8.8 mg/dL (8.4-10.5) 07/21/17 06:00 Phosphorus 3.1 mg/dL (2.5-4.5) 07/17/17 15:51 Magnesium 1.8 mg/dL (1.7-2.2) 07/19/17 11:08 Iron 29 ug/dL (45-180) L 07/20/17 11:30 TIBC 252.1 ug/dL (250-450) 07/20/17 11:30 % Saturation 12 (20-55) L 07/20/17 11:30 Ferritin 388.0 ng/mL 07/20/17 11:30 Total Bilirubin 0.5 mg/dL (0.2-1.3) 07/21/17 06:00 AST 66 U/L (17-59) H D 07/21/17 06:00 ALT 56 U/L (7-56) 07/21/17 06:00 Alkaline Phosphatase 47 U/L (38-126) 07/21/17 06:00 C-React Prot High Sens > 15.00 mg/L (1.00-3.00) H 07/17/17 15:51 Total Protein 5.5 g/dL (5.8-8.3) L 07/21/17 06:00 Albumin 2.9 g/dL (3.0-4.8) L 07/21/17 06:00 Globulin 2.6 gm/dL 07/21/17 06:00 Albumin/Globulin Ratio 1.1 (1.1-1.8) 07/21/17 06:00 Lipase 28 U/L (23-300) 07/17/17 06:49 Vitamin B12 301 pg/mL (239-931) 07/20/17 11:30 Folate 9.2 ng/mL 07/20/17 11:30 Procalcitonin 3.58 NG/ML (0.19-0.49) H 07/17/17 15:51 Venous Blood Potassium 3.6 mmol/L (3.6-5.2) 07/17/17 07:50 Stool Occult Blood Positive (NEGATIVE) H 07/17/17 10:15 Stool Leukocytes, Qual Negative (NEGATIVE) 07/17/17 10:10 Hepatitis A IgM Ab Negative (NEGATIVE) 07/17/17 19:56 Hep Bs Antigen Negative (NEGATIVE) 07/17/17 19:56 Hep B Core IgM Ab Negative (NEGATIVE) 07/17/17 19:56 Hepatitis C Antibody Negative (NEGATIVE) 07/17/17 19:56 HIV-1 RNA Qnt (RT-PCR) <1.30 not detected (<1.30) 07/17/17 11:30 HIV 1&2 Ag/Ab, 4th Gen Nonreactive (Nonreactive) 07/17/17 11:30 Influenza Typ A,B (EIA) Negative for flu a/b (NEGATIVE) 07/17/17 07:36 - Hospital Course Hospital Course: Patient is a 51 year old man with past medical history of hypertension who presents to [facility] ED on 07/17/17 with complaints of abdominal pain and intractable diarrhea. On presentation, wbc was normal, but patient was febrile and tachycardia. Patient had CT abdomen and pelvis revealing enteritis versus inflammatory bowel syndrome. Patient was admitted with sepsis and was started on IV antibiotics. Stool studies were normal for c. diff, ova and parasite. Blood cultures and urine cultures with no growth. Patient was followed by ID. LFTS and HIV test were negative. Gi was also consulted and recommended outpatient elective egd. Patient was npo initially and diet was advanced slowly as patient improved. On 07/21/17, patient reported improved in symptoms, resolution of the diarrhea. ID changed patient's antibiotics to po vantin and flagyl for 7 days total. Furthermore, patient had episodes of mild neutropenia and mild anemia, neutropenia resolved on its won, and anemia was deemed to be likely due to ivf, iron deficiency, vitamin b12, folate were normal, and hemolysis was ruled out with elevated haptoglobin. Patient's BP was low normal on admission, and was told to discontinue Norvasc until he sees his PMD. Patient was instructed to continue Lopressor. Patient to be discharged to follow with Dr Beckett in 1 week, and Dr Walton for outpatient EGD. Diet: low salt diet Activity- no limitations, resume activity as tolerated. - Date & Time of H&P Date of H&P: 07/17/17 Time of H&P: 10:27 Discharge Exam - Head Exam Head Exam: NORMAL INSPECTION - Eye Exam Eye Exam: EOMI, Normal appearance, PERRL Pupil Exam: NORMAL ACCOMODATION, PERRL - ENT Exam ENT Exam: Normal Exam - Neck Exam Neck exam: Normal Inspection - Respiratory Exam Respiratory Exam: Clear to PA & Lateral, NORMAL BREATHING PATTERN, UNREMARKABLE. absent: Rales, Rhonchi, Wheezes, Respiratory Distress, Stridor - Cardiovascular Exam Cardiovascular Exam: REGULAR RHYTHM, +S1, +S2. absent: Gallop, JVD, RRR, Rubs, Systolic Murmur - GI/Abdominal Exam GI & Abdominal Exam: Normal Bowel Sounds, Unremarkable. absent: Distended, Firm , Guarding, Rigid, Soft, Tenderness - Extremities Exam Extremities exam: normal inspection - Back Exam Back exam: NORMAL INSPECTION - Neurological Exam Neurological exam: Alert, Oriented x3, Reflexes Normal - Psychiatric Exam Psychiatric exam: Normal Affect, Normal Mood - Skin Skin Exam: Dry, Intact, Normal Color, Warm Discharge Plan - Discharge Medications Prescriptions: Cefpodoxime [Vantin] 200 mg PO Q12 #11 tab metroNIDAZOLE [Flagyl] 500 mg PO Q8 #11 tab - Follow Up Plan Condition: FAIR Disposition: HOME/ ROUTINE Patient education suggested?: Yes Instructions: Cholesterol and Your Health (GEN), Ulcerative Colitis (GEN), Gastroesophageal Reflux Disease (GEN), Acute Abdominal Pain (GEN), Enteritis ( GEN) Additional Instructions: Please take the antibiotics as prescribed for 5 more days. Follow up with Dr Beckett as outpatient in 1 week Please follow up with the stomach doctor, Dr Walton as scheduled Please stop Norvasc until you see your primary care doctor, you can continue to take the metoprolol 50 mg daily. Please come back or go to the nearest emergency room if the symptoms persists or worsens. discussed w/ resident at length orders meds follow up w/ pmd ok for d/c Referrals: Phong Beckett MD [Primary Care Provider] - Ricardo Walton MD [Medical Doctor] - <Juan Valerio S - Last Filed: 07/22/17 09:30> Provider - Provider Date of Admission: 07/17/17 10:12 Attending physician: Phong Beckett MD Primary care physician: Phong Beckett MD Hospital Course - Lab Results Lab Results: Micro Results 07/17/17 10:30 Blood-Venous Blood Culture - Preliminary NO GROWTH AFTER 4 DAYS 07/17/17 14:14 Stool Ova and Parasite Concentrate Exam - Final 07/17/17 17:00 Stool C. difficile Antigen & Toxin A,B (M - Final Most Recent Lab Values WBC 5.5 10^3/ul (4.5-11.0) D 07/21/17 06:00 RBC 3.95 10^6/uL (3.5-6.1) 07/21/17 06:00 Hgb 11.9 g/dL (14.0-18.0) L 07/21/17 06:00 Hct 35.2 % (42.0-52.0) L 07/21/17 06:00 MCV 89.1 fl (80.0-105.0) 07/21/17 06:00 MCH 30.1 pg (25.0-35.0) 07/21/17 06:00 MCHC 33.8 g/dl (31.0-37.0) 07/21/17 06:00 RDW 13.0 % (11.5-14.5) 07/21/17 06:00 Plt Count 171 10^3/uL (120.0-450.0) 07/21/17 06:00 MPV 9.3 fl (7.0-11.0) 07/21/17 06:00 Gran % 62.7 % (50.0-68.0) 07/21/17 06:00 Lymph % (Auto) 25.2 % (22.0-35.0) 07/21/17 06:00 [place] % (Auto) 9.5 % (1.0-6.0) H 07/21/17 06:00 Eos % (Auto) 2.4 % (1.5-5.0) 07/21/17 06:00 Baso % (Auto) 0.2 % (0.0-3.0) 07/21/17 06:00 Gran # 3.43 (1.4-6.5) 07/21/17 06:00 Lymph # 1.4 (1.2-3.4) 07/21/17 06:00 [place] # 0.5 (0.1-0.6) 07/21/17 06:00 Eos # 0.1 (0.0-0.7) 07/21/17 06:00 Baso # 0.01 K/mm3 (0.0-2.0) 07/21/17 06:00 Haptoglobin 394 mg/dL (43-212) H 07/20/17 11:30 PT 11.1 SECONDS (9.4-12.5) 07/19/17 20:37 INR 1.02 (0.93-1.08) 07/19/17 20:37 APTT 27.7 Seconds (25.1-36.5) 07/19/17 20:37 pO2 100 mm/Hg (30-55) H 07/17/17 07:50 VBG pH 7.44 (7.32-7.43) H 07/17/17 07:50 VBG pCO2 36.0 (40-60) L 07/17/17 07:50 VBG HCO3 24.5 mmol/l (21-28) 07/17/17 07:50 VBG Total CO2 25.6 mmol.L (22-28) 07/17/17 07:50 VBG O2 Sat (Calc) 98.8 % (40-65) H 07/17/17 07:50 VBG Base Excess 0.6 mmol/L (0.0-2.0) 07/17/17 07:50 VBG Potassium 3.6 mmol/L (3.6-5.2) 07/17/17 07:50 Sodium 133.0 mmol/L (132-148) 07/17/17 07:50 Chloride 104.0 mmol/L (98-107) 07/17/17 07:50 Glucose 147 mg/dl (75-110) H 07/17/17 07:50 Lactate 1.2 mmol/L (0.7-2.1) 07/17/17 07:50 FiO2 21.0 % 07/17/17 07:50 Sodium 138 mmol/L (132-148) 07/21/17 06:00 Potassium 3.8 mmol/L (3.6-5.0) 07/21/17 06:00 Chloride 108 mmol/L (98-107) H 07/21/17 06:00 Carbon Dioxide 26 mmol/L (21-33) 07/21/17 06:00 Anion Gap 8 (10-20) L 07/21/17 06:00 BUN 5 mg/dL (7-21) L 07/21/17 06:00 Creatinine 0.9 mg/dl (0.8-1.5) 07/21/17 06:00 Est GFR ( Amer) > 60 07/21/17 06:00 Est GFR (Non-Af Amer) > 60 07/21/17 06:00 Random Glucose 97 mg/dL (70-110) 07/21/17 06:00 Calcium 8.8 mg/dL (8.4-10.5) 07/21/17 06:00 Phosphorus 3.1 mg/dL (2.5-4.5) 07/17/17 15:51 Magnesium 1.8 mg/dL (1.7-2.2) 07/19/17 11:08 Iron 29 ug/dL (45-180) L 07/20/17 11:30 TIBC 252.1 ug/dL (250-450) 07/20/17 11:30 % Saturation 12 (20-55) L 07/20/17 11:30 Ferritin 388.0 ng/mL 07/20/17 11:30 Total Bilirubin 0.5 mg/dL (0.2-1.3) 07/21/17 06:00 AST 66 U/L (17-59) H D 07/21/17 06:00 ALT 56 U/L (7-56) 07/21/17 06:00 Alkaline Phosphatase 47 U/L (38-126) 07/21/17 06:00 C-React Prot High Sens > 15.00 mg/L (1.00-3.00) H 07/17/17 15:51 Total Protein 5.5 g/dL (5.8-8.3) L 07/21/17 06:00 Albumin 2.9 g/dL (3.0-4.8) L 07/21/17 06:00 Globulin 2.6 gm/dL 07/21/17 06:00 Albumin/Globulin Ratio 1.1 (1.1-1.8) 07/21/17 06:00 Lipase 28 U/L (23-300) 07/17/17 06:49 Vitamin B12 301 pg/mL (239-931) 07/20/17 11:30 Folate 9.2 ng/mL 07/20/17 11:30 Procalcitonin 3.58 NG/ML (0.19-0.49) H 07/17/17 15:51 Venous Blood Potassium 3.6 mmol/L (3.6-5.2) 07/17/17 07:50 Stool Occult Blood Positive (NEGATIVE) H 07/17/17 10:15 Stool Leukocytes, Qual Negative (NEGATIVE) 07/17/17 10:10 Hepatitis A IgM Ab Negative (NEGATIVE) 07/17/17 19:56 Hep Bs Antigen Negative (NEGATIVE) 07/17/17 19:56 Hep B Core IgM Ab Negative (NEGATIVE) 07/17/17 19:56 Hepatitis C Antibody Negative (NEGATIVE) 07/17/17 19:56 HIV-1 RNA Qnt (RT-PCR) <1.30 not detected (<1.30) 07/17/17 11:30 HIV 1&2 Ag/Ab, 4th Gen Nonreactive (Nonreactive) 07/17/17 11:30 Influenza Typ A,B (EIA) Negative for flu a/b (NEGATIVE) 07/17/17 07:36
--- NOTE | 2017-07-21 13:52 | CP.PCM.PN ---
Subjective - Date & Time of Evaluation Date of Evaluation: 07/21/17 Time of Evaluation: 11:20 - Subjective Subjective: Comfortable on a chair, ready to go home, no fevers overnight, no more diarrhea , no more abdominal pain. Objective - Vital Signs/Intake and Output Vital Signs (last 24 hours): Temp Pulse Resp BP Pulse Ox 100.2 F H 110 H 20 131/82 95 07/21/17 07:44 07/21/17 07:44 07/21/17 07:44 07/21/17 07:44 07/21/17 07:44 Intake and Output: 07/21/17 07/21/17 06:59 18:59 Intake Total 2400 Balance 2400 - Medications Medications: Current Medications Acetaminophen (Tylenol 325mg Tab) 650 mg PO Q6H PRN PRN Reason: Headache Last Admin: 07/21/17 05:21 Dose: 650 mg Cefpodoxime Proxetil (Vantin) 200 mg PO Q12 PATRICIA PRN Reason: Protocol Stop: 07/25/17 13:46 Last Admin: 07/21/17 09:26 Dose: 200 mg Metronidazole (Flagyl) 500 mg PO Q8 PATRICIA PRN Reason: Protocol Last Admin: 07/21/17 05:21 Dose: 500 mg Ondansetron HCl (Zofran Inj) 4 mg IVP Q4 PRN PRN Reason: Nausea/Vomiting Pantoprazole Sodium (Protonix Inj) 40 mg IVP Q12 [facility] Last Admin: 07/21/17 09:26 Dose: 40 mg - Labs Labs: 07/21/17 06:00 07/21/17 06:00 PT 11.1 SECONDS (9.4-12.5) 07/19/17 20:37 INR 1.02 (0.93-1.08) 07/19/17 20:37 APTT 27.7 Seconds (25.1-36.5) 07/19/17 20:37 - Constitutional Appears: Non-toxic, No Acute Distress - Head Exam Head Exam: NORMAL INSPECTION - ENT Exam ENT Exam: Mucous Membranes Moist - Neck Exam Neck Exam: absent: Meningismus - Respiratory Exam Respiratory Exam: Decreased Breath Sounds. absent: Rales - Cardiovascular Exam Cardiovascular Exam: +S1, +S2 - GI/Abdominal Exam GI & Abdominal Exam: Soft. absent: Tenderness Assessment and Plan - Assessment and Plan (Free Text) Plan: Assessment Sepsis due to acute enterocolitis, improving clinically HTN Plan on PO Vantin and Flagyl (day 4 total antibiotics) to complete a 7 day course patient to follow up with GI as an outpatient
--- NOTE | 2017-07-21 14:23 | CON ---
DATE: 07/21/2017 REASON FOR CONSULTATION: Leukopenia as well as thrombocytopenia. HISTORY OF PRESENT ILLNESS: The patient is a 51-year-old male with past medical history of hypertension who was admitted with complaints of abdominal pain and cramping associated with fever and chills for 2 to 3 days prior to admission. He initially had no diarrhea, but then his stool became watery and brown. He did not have any associated nausea or vomiting. He had a CT scan done upon admission, which showed enterocolitis. He states he has no prior such history as a matter of fact he had a colonoscopy done last year, which only revealed few benign polyps, which were removed and he has no prior history of colitis. He normally resides in [place] and denies any recent foreign travel, no ill contacts, no animal contacts, no other complaints. PAST MEDICAL HISTORY: As above, known for hypertension. MEDICATIONS WHILE IN THE HOSPITAL: Flagyl, Levaquin, Zofran and Protonix. ALLERGIES: NO KNOWN DRUG ALLERGIES. SOCIAL HISTORY: Noncontributory. He is not a smoker. No alcohol use. No drug use. FAMILY HISTORY: Noncontributory. REVIEW OF SYSTEMS: As per the HPI. PHYSICAL EXAMINATION: VITAL SIGNS: Reveal a temperature of 100.2, pulse of 110, respiratory rate of 20 and a blood pressure of 131/82. GENERAL: The patient is a young male, sitting up in bed, in no acute distress. HEAD AND NECK: Normocephalic and atraumatic. Eyes; pupils equal, round, reactive to light and accommodation. Extraocular muscles are intact. There is no pallor, no icterus is noted. Neck is supple with no adenopathy. No JVD. No thyromegaly. LUNGS: Clear to auscultation bilaterally with no rales or rhonchi. CARDIOVASCULAR: S1 and S2 is heard. ABDOMEN: Positive bowel sounds. Soft, nontender, and nondistended. No organomegaly is palpated. EXTREMITIES: There is no edema, clubbing or cyanosis. LABORATORY DATA: His labs reveal a white count of 5.5, his white did drop down to 3.7, but the ANC was above 2, hemoglobin of 11.9, hematocrit of 35.2 and a platelet count of 171, which had also dropped down to 110. Chemistries are within normal limits. His AST is mildly elevated at 66. Iron studies reveal a normal iron storage. B12 levels are noted to be slightly low. Stool occult was positive. He has no evidence of hepatitis, HIV or influenza. ASSESSMENT AND PLAN: A middle-aged male with enterocolitis, admitted few days ago, initially he had a drop in his WBC count as well as platelet count, which is now completely recovered as his colitis is resolving. No concern for primary hematological pathology here. The patient does need a followup with GI upon discharge for etiology of his colitis. He has had recent colonoscopy perhaps needs an endoscopy as well. He does not need any further hematological workup as all his counts have recovered. Thank you for the consult. We will follow. Aidan Brown MD
== END 2017-07-21 13:47 | disposition home or self-care (01) | DRG 872 ==
LOC: ED 05:21 → ERH 10:12 → OBSVTOIN 10:12 → ERH 10:19 → 5RNO 11:21
PROVIDERS: ADMIT Internal Medicine; ATTEND Internal Medicine
DX: A41.9 Sepsis, unspecified organism (principal); D69.6 Thrombocytopenia, unspecified; D70.9 Neutropenia, unspecified; E83.42 Hypomagnesemia; E86.0 Dehydration; A09 Infectious gastroenteritis and colitis, unspecified; D64.9 Anemia, unspecified; E78.5 Hyperlipidemia, unspecified; E87.6 Hypokalemia; I10 Essential (primary) hypertension; K21.9 Gastro-esophageal reflux disease without esophagitis; Z86.010 Personal history of colon polyps; R40.2412 Glasgow coma scale score 13-15, at arrival to emergency department